=== PATIENT | male | born 1960 | race Caucasian/White ===

== ENCOUNTER 2016-11-28 09:13 | Emergency (ER) | payer MEDICARE ==
[~2016-11-28] VITALS: Ht 182.9 cm; Wt 97.3 kg
[~2016-11-28 09:13] MED LIST: ASPI-973 PO; ATOR20TA65 PO; CARV25TA2 PO; DIGO125T73 PO; FUR20 PO; INSLIS SUBQ; LISI-571 PO; LORA1TAB PO; METF500T4 PO; METO-301 PO; MULT-1018 PO; NITR1PAT58 TP; NPH,100V10 SUBQ; OMEG-38 PO; OMEP40CA36 PO; PROC25SU30 RC; PROM25SU46 RC; SERT100T9 PO; SPIR25TA3 PO
[2016-11-28 09:31] VITALS: BP 127/81; PULSE 106; RESP 16; O2SAT 99
[2016-11-28] MEDS ORDERED: Ondansetron 8 mg ODT Tablet ONE (09:34)
--- NOTE | 2016-11-28 09:47 | ED.REPORT ---
HPI-Abd Pain M 40 and Over Date of Service Nov 28, 2016 ED Provider: Laury Dyer MD This patient is a 55 year old male with a history of gastroparesis and DM presenting to the ED complaining of an exacerbation of gastroparesis. For 2 days , he has been nauseous and with one episode of vomiting today. He regularly takes Reglan with meals and took 20mg at 0700 this morning. He states that he threw up half of his breakfast sandwich and that is when the pain started in the upper quadrant of his stomach that is sharp and cramping. He had a slight fever yesterday, which has resolved and denies chills. Pt has had normal BM's. He has a referral to [facility] for a possible gastric pace maker. He states that he has modified his diet due to DM and things have improved since. He reports this pain is the same as previous exacerbations of gastroparesis. Nursing Notes Stated Complaint: VOMITING Chief Complaint: Male Abdominal Pain Nursing Notes Reviewed: Yes Allergies: Coded Allergies: haloperidol (Verified Adverse Reaction, Intermediate, feels jittery and uncomfortable, 11/13/16) morphine (Verified Adverse Reaction, Intermediate, emesis, 11/13/16) Scheduled Aspirin (Aspirin) 81 Mg Tablet 81 MG PO DAILY Atorvastatin Calcium (Atorvastatin Calcium) 20 Mg Tablet 40 MG PO HS Carvedilol (Carvedilol) 25 Mg Tablet 25 MG PO BIDWM Digoxin (Digoxin) 125 Mcg Tablet 125 MCG PO Daily 0900 Furosemide (Furosemide) 20 Mg Tab 20 MG PO MORNING Insulin Human Lispro (HumaLOG U100 Insulin Vial) 100 Unit/Ml Unit UNITS SUBQ ACHS Use sliding scale to adjust dose according to your blood glucose Lisinopril (Lisinopril) 5 Mg Tablet 7.5 MG PO BID Metformin (Metformin) 500 Mg Tablet 1,000 MG PO BIDWM Metoclopramide (Reglan) 10 Mg Tablet 20 MG PO TID Multivitamin (Multi Vitamin Daily) 1 Each Tablet 1 TABLET PO DAILY NPH, Human Insulin Isophane (Novolin-N U100 Insulin Vial) 100 Unit/1 Ml Vial 80 UNITS SUBQ BIDAC Nitroglycerin 0.1 mg/hr Patch (Nitroglycerin 0.1 mg/hr Patch) 1 Each Patch.td24 1 PATCH TP DAILY [place]-3/Dha/Epa/Fish Oil (Fish Oil 1,000 mg Softgel) 1 Each Capsule 1 CAPSULE PO HS Omeprazole (Omeprazole) 40 Mg Capsule.dr 40 MG PO DAILY Ondansetron ODT (Ondansetron ODT) 8 Mg Tab.rapdis 8 MG PO Q6H Promethazine HCl (Phenergan) 25 Mg Supp.rect 25 MG RC QID Sertraline HCl (Sertraline) 100 Mg Tablet 100 MG PO BID Spironolactone (Spironolactone) 25 Mg Tablet 25 MG PO DAILY Scheduled PRN Lorazepam (Lorazepam) 1 Mg Tablet 1 MG PO Q8H PRN PRN For Anxiety or Agitation Prochlorperazine Maleate (Compazine Suppository) 25 Mg Supp.rect 25 MG RC Q8 PRN PRN For Nausea/Vomiting General Time Seen by MD: 09:47 Chief Complaint Abdominal pain Hx Obtained From: Patient Arrived By: Walk-in Sudden in Onset?: Yes Onset Occurred: 2 days ago Context of Onset: After vomiting Symptom Duration: Since onset Quality: Cramping, Sharp Severity: Current: Severe Severity: Maximum: Severe Associated with: Reports: Fever, Denies: Chills Additional Notes: Slight fever yesterday but not today Pertinent Negative: Pt denies other symptoms Exacerbated by: Eating Recent Healthcare: No recent hospitalization, Recent doctor visit Similar Sx Previous: Yes Past Medical History Past Medical History Notes: Multiple ED visits for gastroparesis: September 10, September 13, September 17, October 13, October 15, October 17, October 18, October 19, October 20 2 Seven ED visits and two admits in October, by 11/14/16 Patient has an appointment to see GI (Leydi) in December Past Medical History 1. Hypertriglyceridemia. 2. Hyperlipidemia. 3. Chronic systolic congestive heart failure. 4. Dilated ischemic cardiomyopathy. 5. Coronary artery disease. 6. Insulin-dependent type 2 diabetes. 7. Diabetic gastroparesis. 8. Diabetic peripheral neuropathy. 9. Erosive gastritis. 10. Duodenitis. 11. Tobacco dependence. 12. Obstructive sleep apnea. 13. Depression. 14. Anxiety. 15. Pancreatitis Reports: Congestive heart failure, Coronary artery disease, GERD Past Surgical History AICD Hemorrhoidectomy Endoscopy 02/07/[address] Henry, gastritis, mild duodenitis Reports: Cholecystectomy, Inguinal hernia repair Reports: AICD, Pacemaker insertion Family History Reviewed, not relevant Smoking History Current Every Day Smoker, Heavy Tobacco Smoker Social History Alcohol Use: "Social" Drug Use: Denies drug use Other Social History: Good social support, Frequent ED visitor, Local resident Occupation Not working; on disability Ambulatory Status Independent Review of Systems Constitutional: Reports: Fever (Slightly yesterday but not today ), Denies: Chills Respiratory: Denies: Shortness of breath GI: Reports: Abdominal pain (Upper quadrant), Nausea, Vomiting (once this morning), Denies: Constipation, Diarrhea Complete sys rev & neg: except as marked. Physical Exam Initial Vital Signs Vital Signs (First) Date Time Temp Pulse Resp B/P Pulse Ox O2 Delivery O2 Flow Rate FiO2 11/28/16 09:31 36.7 106 16 127/81 99 Room Air Initial VS: Reviewed Head / Eyes: Atraumatic, Normocephalic, PERRL ENT: Conjunctiva normal, No scleral icterus Neck: Supple, Full range of motion Extremities: Vascular intact, Neuro intact Skin: Warm, Dry, No cyanosis Neurologic: Alert, Oriented, Nonfocal Psychiatric: Mood/affect normal, Behavior normal, Normal thought content General/Constitutional: Awake, Alert Respiratory / Chest: Breath sounds NL, Breath sounds = bilat, No respiratory distress, No rales, No rhonchi, No wheezing Cardiovascular: Heart rate NL, Regular rhythm, Heart sounds NL, Peripheral circulation NL Abdomen: Atraumatic, Soft Tenderness/Guarding/Rebound: Positive: Guarding voluntary Tenderness generalized in upper abdomen. Re-Eval/Medical Decision Med Decision/Clinical Course This patient presents with gastroparesis in his usual abdominal pain that is associated with it. He denies any new symptoms. He has had only one episode of emesis and was given IM injections and given an oral challenge. After taking some sips of fluid he complained of recurrent nausea for she is given Zofran he did not have any further episodes of emesis. Source of Hx: Old records Time of Eval: 12:30 Patient Status: Condition improved Re-Evaluation/Progress Note: Discussed findings with patient and ready for discharge. Pt. understands and agrees with plan. All questions have been addressed at this time. Discharge & Departure Primary Impression: Gastroparesis Additional Impression: Nausea and vomiting Vomiting type: unspecified Vomiting Intractability: non-intractable Qualified Code: R11.2 - Nausea with vomiting, unspecified Disposition: Home Vital Signs - All Vital Signs Date Time Temp Pulse Resp B/P Pulse Ox O2 Delivery O2 Flow Rate FiO2 11/28/16 12:45 36.7 92 14 130/82 99 Room Air 11/28/16 09:31 36.7 106 16 127/81 99 Room Air )( All Prior VS Reviewed: Yes Condition: Stable Patient Instructions: Diabetic gastroparesis (DC) Additional Instructions: For today you should be on a liquid diet. Increase your diet as tolerated. Keep your follow up appointments. Continue your regular medications Seek care for new or concerning symptoms. Referrals: OTHER,PHYSICIAN (PCP) (Family) Scribe Attestation Portions of this note were transcribed by Aileen Colvin and Marisela Maldonado. I, Dr. Dyer personally performed the history, physical exam and medical decision- making; I reviewed and confirmed the accuracy of the information in the transcribed note. Signed by: Ayanna Jamison, 11/28/2016 and 1231. Laury Dyer MD Nov 28, 2016 09:47 Anna Maldonado [Marisela] Nov 28, 2016 10:20 Aileen Colvin Nov 28, 2016 11:47
[2016-11-28] MEDS ORDERED: Promethazine 25 mg/mL Inj IM ONE (10:15)
[2016-11-28] MEDS ORDERED: HYDROmorphone 1 mg/mL Inj IM ONE (10:15)
[2016-11-28] MEDS ORDERED: Ondansetron 8 mg ODT Tablet PO ONE (11:45)
[2016-11-28] MEDS ORDERED: ONDA8TAB10 PO (12:34)
[2016-11-28 12:45] VITALS: BP 130/82; PULSE 92; RESP 14; O2SAT 99
[2016-11-29] MEDS ORDERED: HYDR-4003 PO (20:38)
[2016-12-10] MEDS ORDERED: ONDA4TAB6 PO (17:13)
[2016-12-10] MEDS ORDERED: HYDR2TAB27 PO (17:13)
== END 2016-11-28 12:46 | disposition home or self-care (01) ==
LOC: SED 09:13
DX: E11.43 Type 2 diabetes mellitus with diabetic autonomic (poly)neuropathy (principal); K31.84 Gastroparesis; R11.2 Nausea with vomiting, unspecified; I25.10 Atherosclerotic heart disease of native coronary artery without angina pectoris; K21.9 Gastro-esophageal reflux disease without esophagitis; I50.9 Heart failure, unspecified; E78.5 Hyperlipidemia, unspecified; F17.200 Nicotine dependence, unspecified, uncomplicated; Z95.0 Presence of cardiac pacemaker; Z79.84 Long term (current) use of oral hypoglycemic drugs; Z79.82 Long term (current) use of aspirin; Z88.5 Allergy status to narcotic agent; Z88.8 Allergy status to other drugs, medicaments and biological substances
CPT/HCPCS: 96372; 99284; J1170

== ENCOUNTER 2016-11-29 16:16 | Emergency (ER) | payer MEDICARE ==
[~2016-11-29] VITALS: Ht 182.9 cm; Wt 97.3 kg
[~2016-11-29 16:16] MED LIST changes: +ONDA8TAB10 PO
[2016-11-29 16:54] VITALS: BP 148/71; PULSE 102; RESP 18; O2SAT 95
[2016-11-29] MEDS ORDERED: 0.9% Sodium Chloride 1,000 ML IV ONE (18:34)
[2016-11-29] MEDS ORDERED: MetoCLOpramide 5 mg/mL 2 mL Inj IVPUSH ONE (18:35)
--- NOTE | 2016-11-29 18:45 | ED.REPORT ---
HPI-Abd Pain M 40 and Over Date of Service Nov 29, 2016 ED Provider: Yusef Núñez PA-C Ramon is a 55-year-old male with a history of diabetic gastroparesis who presents with chief complaint of nausea and vomiting. Patient states that he is diabetic gastroparesis as been flaring since last night. He complains of upper abdominal pain, nausea vomiting. Denies fever, chest pain, dyspnea. Nursing Notes Stated Complaint: NAUSEA,VOMITING Chief Complaint: Male Abdominal Pain Nursing Notes Reviewed: Yes Allergies: Coded Allergies: haloperidol (Verified Adverse Reaction, Intermediate, feels jittery and uncomfortable, 11/13/16) morphine (Verified Adverse Reaction, Intermediate, emesis, 11/13/16) Scheduled Aspirin (Aspirin) 81 Mg Tablet 81 MG PO DAILY Atorvastatin Calcium (Atorvastatin Calcium) 20 Mg Tablet 40 MG PO HS Carvedilol (Carvedilol) 25 Mg Tablet 25 MG PO BIDWM Digoxin (Digoxin) 125 Mcg Tablet 125 MCG PO Daily 0900 Furosemide (Furosemide) 20 Mg Tab 20 MG PO MORNING Insulin Human Lispro (HumaLOG U100 Insulin Vial) 100 Unit/Ml Unit UNITS SUBQ ACHS Use sliding scale to adjust dose according to your blood glucose Lisinopril (Lisinopril) 5 Mg Tablet 7.5 MG PO BID Metformin (Metformin) 500 Mg Tablet 1,000 MG PO BIDWM Metoclopramide (Reglan) 10 Mg Tablet 20 MG PO TID Multivitamin (Multi Vitamin Daily) 1 Each Tablet 1 TABLET PO DAILY NPH, Human Insulin Isophane (Novolin-N U100 Insulin Vial) 100 Unit/1 Ml Vial 80 UNITS SUBQ BIDAC Nitroglycerin 0.1 mg/hr Patch (Nitroglycerin 0.1 mg/hr Patch) 1 Each Patch.td24 1 PATCH TP DAILY [place]-3/Dha/Epa/Fish Oil (Fish Oil 1,000 mg Softgel) 1 Each Capsule 1 CAPSULE PO HS Omeprazole (Omeprazole) 40 Mg Capsule.dr 40 MG PO DAILY Ondansetron ODT (Ondansetron ODT) 8 Mg Tab.rapdis 8 MG PO Q6H Promethazine HCl (Phenergan) 25 Mg Supp.rect 25 MG RC QID Sertraline HCl (Sertraline) 100 Mg Tablet 100 MG PO BID Spironolactone (Spironolactone) 25 Mg Tablet 25 MG PO DAILY Scheduled PRN Hydrocodone-Acetaminophen 5-325 mg (Hydrocodone-Acetaminophen 5-325 mg) 1 Each Tablet 1-2 TABLET PO Q4H PRN PRN For Pain Lorazepam (Lorazepam) 1 Mg Tablet 1 MG PO Q8H PRN PRN For Anxiety or Agitation Prochlorperazine Maleate (Compazine Suppository) 25 Mg Supp.rect 25 MG RC Q8 PRN PRN For Nausea/Vomiting General Time Seen by MD: 18:20 Chief Complaint Nausea Sudden in Onset?: No Past Medical History Past Medical History Notes: Multiple ED visits for gastroparesis: September 10, September 13, September 17, October 13, October 15, October 17, October 18, October 19, October 20 2 Seven ED visits and two admits in October, by 11/14/16 Patient has an appointment to see GI (Leydi) in December Past Medical History 1. Hypertriglyceridemia. 2. Hyperlipidemia. 3. Chronic systolic congestive heart failure. 4. Dilated ischemic cardiomyopathy. 5. Coronary artery disease. 6. Insulin-dependent type 2 diabetes. 7. Diabetic gastroparesis. 8. Diabetic peripheral neuropathy. 9. Erosive gastritis. 10. Duodenitis. 11. Tobacco dependence. 12. Obstructive sleep apnea. 13. Depression. 14. Anxiety. 15. Pancreatitis Reports: Congestive heart failure, Coronary artery disease, GERD Past Surgical History AICD Hemorrhoidectomy Endoscopy 02/07/[address] Henry, gastritis, mild duodenitis Reports: Cholecystectomy, Inguinal hernia repair Reports: AICD, Pacemaker insertion Family History Reviewed, not relevant Smoking History Current Every Day Smoker, Heavy Tobacco Smoker Social History Alcohol Use: "Social" Drug Use: Denies drug use Other Social History: Good social support, Frequent ED visitor, Local resident Occupation Not working; on disability Ambulatory Status Independent Review of Systems General: Denies fever, chills, malaise. HEENT: Denies congestion, headache, sore throat. Respiratory: Denies dyspnea, cough, shortness of breath, wheezing. Cardiovascular: Denies chest pain, palpitations. Gastrointestinal: Admits abdominal pain, vomiting. Denies diarrhea, , melena, hematochezia Genitourinary: Denies frequency, urgency, dysuria, hematuria. Otherwise as noted in HPI. Physical Exam General: Ill appearing, well developed, well nourished, mild distress. Head: Atraumatic, normocephalic. Eyes: No scleral icterus or injection. No discharge. Vision grossly intact. ENT: Voice clear, hearing grossly intact. Respiratory: Regular rate and rhythm. Breath sounds present, clear to auscultation and equal bilaterally. Cardiovascular: Regular rate and rhythm, without murmur, gallop or rub. No pedal edema. Gastrointestinal: Tender across the upper quadrants without rebound. Bowel sounds hypoactive Skin: Warm and dry. Neurological: Grossly nonfocal. Initial Vital Signs Vital Signs (First) Date Time Temp Pulse Resp B/P Pulse Ox O2 Delivery O2 Flow Rate FiO2 11/29/16 16:54 36.1 102 18 148/71 95 Room Air Initial VS: Vital signs abnormal (mild tachycardia) Re-Eval/Medical Decision Med Decision/Clinical Course I discussed this case with Dr. Mead. This is a 54-year-old male patient well known to the department with a history of diabetic gastroparesis. He complains of upper abdominal pain, severe nausea and vomiting. Denies fever, chills, diarrhea or other symptoms. The symptoms are familiar to him as his usual gastroparesis flare. No indication is a new condition such as a perforated bowel, pancreatitis, ulcer, gallbladder disease. Responded well to fluids, diphenhydramine, metoclopramide, hydromorphone. Now feels better and ready to be discharged to home. Time of Eval: 23:35 Re-Evaluation/Progress Note: Patient responded well to fluids, antiemetics, Benadryl, analgesics. He is comfortable and ready to be discharged Discharge & Departure Primary Impression: Diabetic gastroparesis Disposition: Home Vital Signs - All Vital Signs Date Time Temp Pulse Resp B/P Pulse Ox O2 Delivery O2 Flow Rate FiO2 11/29/16 19:41 74 16 136/84 95 Room Air 11/29/16 16:54 36.1 102 18 148/71 95 Room Air )( All Prior VS Reviewed: Yes Condition: Stable Patient Instructions: Diabetic gastroparesis (GEN) Additional Instructions: Evaluation in the ED for upper abdominal pain and vomiting. History and physical are consistent with your familiar diabetic gastroparesis flare. Responded well to medications numerous department. Stable and safe for discharge. I will send her with a prescription for a small amount of narcotic pain medication. As you know do not drive, operate heavy machinery or drink alcohol on his medications. Follow up with your primary care provider to continue therapy for your diabetic gastroparesis. Return to emergency department for any new or worsening symptoms. Referrals: NOPCP (PCP) EDSupervising Provider for APC: Jonelle Mead MD, Seth PA-C Nov 29, 2016 18:45
[2016-11-29] MEDS: HYDROmorphone 1 mg/mL Inj IVPUSH PRN ×2 (19:15→19:42)
[2016-11-29 19:41] VITALS: BP 136/84; PULSE 74; RESP 16; O2SAT 95
[2016-11-29] MEDS ORDERED: HYDR-4003 PO (20:38)
[2016-11-29 20:49] VITALS: PULSE 78; RESP 16; O2SAT 95
[2016-12-10] MEDS ORDERED: ONDA4TAB6 PO (17:13)
[2016-12-10] MEDS ORDERED: HYDR2TAB27 PO (17:13)
== END 2016-11-29 20:52 | disposition home or self-care (01) ==
LOC: SED 16:16
DX: E11.43 Type 2 diabetes mellitus with diabetic autonomic (poly)neuropathy (principal); K31.84 Gastroparesis; K21.9 Gastro-esophageal reflux disease without esophagitis; I25.10 Atherosclerotic heart disease of native coronary artery without angina pectoris; I50.22 Chronic systolic (congestive) heart failure; Z95.0 Presence of cardiac pacemaker; F17.200 Nicotine dependence, unspecified, uncomplicated; Z79.82 Long term (current) use of aspirin; Z79.4 Long term (current) use of insulin; Z79.84 Long term (current) use of oral hypoglycemic drugs; Z88.5 Allergy status to narcotic agent
CPT/HCPCS: 96361; 96374; 96375; 99284; J1170; J1200; J2765; J7030

== ENCOUNTER 2016-12-03 16:56 | Emergency (ER) | payer MEDICARE ==
[~2016-12-03] VITALS: Ht 182.9 cm; Wt 97.3 kg
[~2016-12-03 16:56] MED LIST changes: +HYDR-4003 PO
[2016-12-03 17:07] VITALS: BP 134/94; PULSE 105; RESP 16; O2SAT 96
[2016-12-03 17:34] LABS: BASOPHILS % (AUTO) 0.9 % (0-3); EOSINOPHILS % (AUTO) 4.4 % (0-5); MONOCYTES % (AUTO) 7.5 % (4-12); Mean Corpuscular Hemoglobin 29.3 pg (27.0-35.0); Mean Corpuscular Volume 81.9 fL (81-100); NEUTROPHILS % (AUTO) 57.9 % (40-74); Platelet Count 231 bil/L (150-400)
[2016-12-03 18:02] LABS: Magnesium 1.9 mg/dL (1.6-2.6)
[2016-12-03] MEDS ORDERED: MetoCLOpramide 5 mg/mL 2 mL Inj IVPUSH ONE (20:10)
[2016-12-03] MEDS ORDERED: HYDROmorphone 1 mg/mL Inj IVPUSH ONE ×2 (20:10→20:45)
--- NOTE | 2016-12-03 20:11 | ED.REPORT ---
HPI-Abd Pain M 40 and Over Date of Service Dec 03, 2016 ED Provider: Ray Barraza MD Patient is a 55 year old male with a history of diabetes mellitus with gastroparesis who is well known in the ED presents complaining of upper abdominal pain, nausea, and vomiting that began today. The patient states that his current symptoms are what he always experiences with his gastropareses. The patient has 20mg Reglan at home for nausea and vomiting. He has previously been given Zofran, which only improves his symptoms sometimes. He is followed by Dr Holley for GI, who is working with him to implant a gastric stimulator. He denies chest pain, bloody or tarry stools, diarrhea, dysuria, fever, or other complaints. Nursing Notes Stated Complaint: GASTROPARESIS Chief Complaint: Male Abdominal Pain Nursing Notes Reviewed: Yes Allergies: Coded Allergies: haloperidol (Verified Adverse Reaction, Intermediate, feels jittery and uncomfortable, 11/13/16) morphine (Verified Adverse Reaction, Intermediate, emesis, 11/13/16) Scheduled Aspirin (Aspirin) 81 Mg Tablet 81 MG PO DAILY Atorvastatin Calcium (Atorvastatin Calcium) 20 Mg Tablet 40 MG PO HS Carvedilol (Carvedilol) 25 Mg Tablet 25 MG PO BIDWM Digoxin (Digoxin) 125 Mcg Tablet 125 MCG PO Daily 0900 Furosemide (Furosemide) 20 Mg Tab 20 MG PO MORNING Insulin Human Lispro (HumaLOG U100 Insulin Vial) 100 Unit/Ml Unit UNITS SUBQ ACHS Use sliding scale to adjust dose according to your blood glucose Lisinopril (Lisinopril) 5 Mg Tablet 7.5 MG PO BID Metformin (Metformin) 500 Mg Tablet 1,000 MG PO BIDWM Metoclopramide (Reglan) 10 Mg Tablet 20 MG PO TID Multivitamin (Multi Vitamin Daily) 1 Each Tablet 1 TABLET PO DAILY NPH, Human Insulin Isophane (Novolin-N U100 Insulin Vial) 100 Unit/1 Ml Vial 80 UNITS SUBQ BIDAC Nitroglycerin 0.1 mg/hr Patch (Nitroglycerin 0.1 mg/hr Patch) 1 Each Patch.td24 1 PATCH TP DAILY [place]-3/Dha/Epa/Fish Oil (Fish Oil 1,000 mg Softgel) 1 Each Capsule 1 CAPSULE PO HS Omeprazole (Omeprazole) 40 Mg Capsule.dr 40 MG PO DAILY Ondansetron ODT (Ondansetron ODT) 8 Mg Tab.rapdis 8 MG PO Q6H Promethazine HCl (Phenergan) 25 Mg Supp.rect 25 MG RC QID Sertraline HCl (Sertraline) 100 Mg Tablet 100 MG PO BID Spironolactone (Spironolactone) 25 Mg Tablet 25 MG PO DAILY Scheduled PRN Hydrocodone-Acetaminophen 5-325 mg (Hydrocodone-Acetaminophen 5-325 mg) 1 Each Tablet 1-2 TABLET PO Q4H PRN PRN For Pain Lorazepam (Lorazepam) 1 Mg Tablet 1 MG PO Q8H PRN PRN For Anxiety or Agitation Prochlorperazine Maleate (Compazine Suppository) 25 Mg Supp.rect 25 MG RC Q8 PRN PRN For Nausea/Vomiting General Time Seen by MD: 19:53 Chief Complaint Abdominal pain, Nausea, Other (vomiting) Hx Obtained From: Patient Arrived By: Walk-in Sudden in Onset?: No Onset Occurred: 1 - 4 hours ago Symptom Duration: Since onset Progression since Onset: Gradually worsening Location: : Abdomen lower Quality: Painful Severity: Current: Moderate Severity: Maximum: Moderate Recent Healthcare: Recent doctor visit Similar Sx Previous: Yes Past Medical History Past Medical History Notes: Multiple ED visits for gastroparesis: September 10, September 13, September 17, October 13, October 15, October 17, October 18, October 19, October 20 2 Seven ED visits and two admits in October, by 11/14/16 Patient has an appointment to see GI (Leydi) in December Past Medical History 1. Hypertriglyceridemia. 2. Hyperlipidemia. 3. Chronic systolic congestive heart failure. 4. Dilated ischemic cardiomyopathy. 5. Coronary artery disease. 6. Insulin-dependent type 2 diabetes. 7. Diabetic gastroparesis. 8. Diabetic peripheral neuropathy. 9. Erosive gastritis. 10. Duodenitis. 11. Tobacco dependence. 12. Obstructive sleep apnea. 13. Depression. 14. Anxiety. 15. Pancreatitis Reports: Congestive heart failure, Coronary artery disease, GERD Past Surgical History AICD Hemorrhoidectomy Endoscopy 02/07/[address] Henry, gastritis, mild duodenitis Reports: Cholecystectomy, Inguinal hernia repair Reports: AICD, Pacemaker insertion Family History Reviewed, not relevant Smoking History Current Every Day Smoker Social History Alcohol Use: "Social" Drug Use: Denies drug use Other Social History: Good social support, Frequent ED visitor, Local resident Occupation Not working; on disability Ambulatory Status Independent Review of Systems Constitutional: Denies: Chills, Fever Respiratory: Denies: Shortness of breath Cardiovascular: Denies: Chest pain GI: Reports: Abdominal pain, Nausea, Vomiting, Denies: Bloody/tarry stool, Diarrhea Male: Denies Dysuria, Denies Flank pain Complete sys rev & neg: except as marked. Physical Exam Initial Vital Signs Vital Signs (First) Date Time Temp Pulse Resp B/P Pulse Ox O2 Delivery O2 Flow Rate FiO2 12/03/16 17:07 36.6 105 16 134/94 96 Room Air Initial VS: Reviewed Head / Eyes: Atraumatic, Normocephalic, PERRL Neck: Supple, Full range of motion Extremities: Vascular intact, Neuro intact Skin: Warm, Dry, No cyanosis Neurologic: Alert, Oriented, Nonfocal Psychiatric: Mood/affect normal, Behavior normal, Normal thought content General/Constitutional: Awake, Alert, No acute distress Respiratory / Chest: Breath sounds NL, Breath sounds = bilat, No respiratory distress, No rales, No rhonchi, No wheezing Cardiovascular: Heart rate NL, Regular rhythm, No murmurs Abdomen: Soft, No guarding, No rebound Tenderness/Guarding/Rebound: Positive: Tender epigastric (mild) Back: Painless range of motion ENT: Airway patent Interpretation & Diagnostics Lab Results Interpretation Result Diagram: 12/03/16 1725 12/03/16 1725 Test 12/03/16 17:25 White Blood Count 7.7th/mm3 (3.8-10.1) Red Blood Count 6.24mil/mm3 (4.40-5.80) Hemoglobin 18.3g/dL (13.8-17.2) Hematocrit 51.1% (41.0-50.0) Mean Corpuscular Volume 81.9fL (81-100) Mean Corpuscular Hemoglobin 29.3pg (27.0-35.0) Mean Corpuscular Hemoglobin Concent 35.8% (32.0-37.0) Red Cell Distribution Width 14.7% (12.3-15.4) Platelet Count 231bil/L (150-400) Neutrophils (%) (Auto) 57.9% (40-74) Lymphocytes (%) (Auto) 28.9% (14-46) Monocytes (%) (Auto) 7.5% (4-12) Eosinophils (%) (Auto) 4.4% (0-5) Basophils (%) (Auto) 0.9% (0-3) Sodium Level 135mEq/L (134-144) Potassium Level 4.0mEq/L (3.5-5.2) Chloride Level 97mEq/L (97-108) Carbon Dioxide Level 23mmol/L (18-29) Blood Urea Nitrogen 17mg/dL (6-24) Creatinine 0.98mg/dL (0.76-1.27) Estimat Glomerular Filtration Rate 85mL/min (>59) Glucose Level 259mg/dL (60-99) Calcium Level 9.5mg/dL (8.5-10.1) Magnesium Level 1.9mg/dL (1.6-2.6) Total Bilirubin 0.6mg/dL (0.0-1.2) Aspartate Amino Transf (AST/SGOT) 13U/L (0-50) Alanine Aminotransferase (ALT/SGPT) 13U/L (0-44) Alkaline Phosphatase 102U/L (25-150) Total Protein 7.1g/dL (6.4-8.4) Albumin 4.3g/dL (3.4-5.0) Lipase 17U/L (13-60) Hold Canseco Top Tube Received (Received) Re-Eval/Medical Decision Med Decision/Clinical Course 55-year-old male history of gastroparesis presenting with typical symptoms of his gastroparesis. He reports these are the same symptoms. He was given 1 dose of Reglan, Dilaudid and Benadryl and his symptoms resolved. Discharged home with return precautions. Source of Hx: Old records Time of Eval: 21:09 Patient Status: Condition improved Re-Evaluation/Progress Note: Rechecked the patient. He will be given an additional dose of Dilaudid prior to discharge. Patient understands and agrees with the plan to be discharged home. No acute problems on labs. Discharge instructions and follow-up discussed. All questions were addressed. Return to the ED warnings given. Counseled Regarding: Diagnosis, Lab results, Need for follow-up, When/why to return to ED Discharge & Departure Primary Impression: Nausea & vomiting Vomiting type: unspecified Vomiting Intractability: non-intractable Qualified Code: R11.2 - Nausea with vomiting, unspecified Additional Impression: Gastroparesis Disposition: Home Vital Signs - All Vital Signs Date Time Temp Pulse Resp B/P Pulse Ox O2 Delivery O2 Flow Rate FiO2 12/03/16 21:24 89 16 142/92 96 Room Air 12/03/16 17:07 36.6 105 16 134/94 96 Room Air )( All Prior VS Reviewed: Yes Condition: Stable Patient Instructions: Acute Nausea and Vomiting (ED) Additional Instructions: It appears that you symptoms today are due to your gastroparesis. Your laboratory evaluation and examination were reassuring. Take the Zofran and Reglan that you have at home as needed for nausea. If you need a new primary care physician, you can contact Dr. Morris's office. You should follow-up with Dr. Holley as planned. Return to the emergency department if you develop worsening abdominal pain, vomiting, fever, or any other concerning symptoms. Referrals: Shilo Morris Donald E MD Scribe Attestation Portions of this note were transcribed by Paula Kimball. I, Dr. Barraza personally performed the history, physical exam and medical decision-making; I reviewed and confirmed the accuracy of the information in the transcribed note. Signed by: Ayanna Maldonado, 12/03/2016 1256 copies to: Shilo Morris DO; Luis Antonio Holley MD, Ben M MD Dec 03, 2016 20:11 Paula Kimball Dec 03, 2016 20:13
[2016-12-03 21:24] VITALS: BP 142/92; PULSE 89; RESP 16; O2SAT 96
[2016-12-10] MEDS ORDERED: HYDR2TAB27 PO (17:13)
[2016-12-10] MEDS ORDERED: ONDA4TAB6 PO (17:13)
== END 2016-12-03 21:25 | disposition home or self-care (01) ==
LOC: SED 16:56
DX: E11.43 Type 2 diabetes mellitus with diabetic autonomic (poly)neuropathy (principal); K31.84 Gastroparesis; E11.59 Type 2 diabetes mellitus with other circulatory complications; E11.21 Type 2 diabetes mellitus with diabetic nephropathy; R11.2 Nausea with vomiting, unspecified; I25.10 Atherosclerotic heart disease of native coronary artery without angina pectoris; I50.22 Chronic systolic (congestive) heart failure; I42.9 Cardiomyopathy, unspecified; E78.5 Hyperlipidemia, unspecified; K21.9 Gastro-esophageal reflux disease without esophagitis; F17.200 Nicotine dependence, unspecified, uncomplicated; Z95.0 Presence of cardiac pacemaker; Z79.82 Long term (current) use of aspirin; Z79.4 Long term (current) use of insulin; Z79.84 Long term (current) use of oral hypoglycemic drugs; Z88.5 Allergy status to narcotic agent; Z88.8 Allergy status to other drugs, medicaments and biological substances
CPT/HCPCS: 36415; 80053; 83690; 83735; 85025; 96374; 96375; 96376; 99285; J1170; J1200; J2765

== ENCOUNTER 2016-12-12 15:28 | Emergency (ER) | payer MEDICARE ==
[~2016-12-12] VITALS: Ht 182.9 cm; Wt 88.6 kg
[~2016-12-12 15:28] MED LIST changes: -HYDR-4003 PO; +HYDR2TAB27 PO; -MULT-1018 PO; -OMEG-38 PO; +ONDA4TAB6 PO; -PROC25SU30 RC; -PROM25SU46 RC
[2016-12-12 15:31] VITALS: BP 143/97; PULSE 90; RESP 20; O2SAT 92
[2016-12-12] MEDS ORDERED: 0.9% Sodium Chloride 1,000 ML IV ONE (17:42)
[2016-12-12] MEDS ORDERED: MetoCLOpramide 5 mg/mL 2 mL Inj IVPUSH ONE ×2 (17:45→19:20)
[2016-12-12 17:51] LABS: EOSINOPHILS % (AUTO) 5.6 % (0-5); MONOCYTES % (AUTO) 7.4 % (4-12); Mean Corpuscular Hemoglobin 29.2 pg (27.0-35.0); Mean Corpuscular Volume 81.6 fL (81-100); NEUTROPHILS % (AUTO) 57.8 % (40-74); Platelet Count 241 bil/L (150-400)
[2016-12-12] MEDS: HYDROmorphone 1 mg/mL Inj IVPUSH PRN ×2 (18:19→18:41)
[2016-12-12 18:20] LABS: Magnesium 1.8 mg/dL (1.6-2.6)
--- NOTE | 2016-12-12 19:18 | ED.REPORT ---
HPI-General Illness Date of Service Dec 12, 2016 ED Provider: Luis Antonio Simms MD A 56 year old male with an extensive medical history including diabetes and frequent ED visits for gastroparesis presents with abdominal pain onset this morning. He also reports nausea and vomiting (x2). He has taken his prescription medication with no relief. His last ED visit was 12/03/16 for similar symptoms. The patient has an appointment with GI next month. Nursing Notes Stated Complaint: NAUSEA,VOMITING Chief Complaint: Male Abdominal Pain Nursing Notes Reviewed: Yes Allergies: Coded Allergies: haloperidol (Verified Adverse Reaction, Intermediate, feels jittery and uncomfortable, 12/12/16) morphine (Verified Adverse Reaction, Intermediate, emesis, 12/12/16) Scheduled Aspirin (Aspirin) 81 Mg Tablet 81 MG PO DAILY Atorvastatin Calcium (Atorvastatin Calcium) 20 Mg Tablet 40 MG PO HS Carvedilol (Carvedilol) 25 Mg Tablet 25 MG PO BIDWM Digoxin (Digoxin) 125 Mcg Tablet 125 MCG PO Daily 0900 Furosemide (Furosemide) 20 Mg Tab 20 MG PO MORNING Insulin Human Lispro (HumaLOG U100 Insulin Vial) 100 Unit/Ml Unit UNITS SUBQ ACHS Use sliding scale to adjust dose according to your blood glucose Lisinopril (Lisinopril) 5 Mg Tablet 7.5 MG PO BID Metformin (Metformin) 500 Mg Tablet 1,000 MG PO BIDWM Metoclopramide (Reglan) 10 Mg Tablet 20 MG PO TID NPH, Human Insulin Isophane (Novolin-N U100 Insulin Vial) 100 Unit/1 Ml Vial 80 UNITS SUBQ BIDAC Nitroglycerin 0.1 mg/hr Patch (Nitroglycerin 0.1 mg/hr Patch) 1 Each Patch.td24 1 PATCH TP DAILY Omeprazole (Omeprazole) 40 Mg Capsule.dr 40 MG PO DAILY Ondansetron ODT (Ondansetron ODT) 8 Mg Tab.rapdis 8 MG PO Q6H Sertraline HCl (Sertraline) 100 Mg Tablet 100 MG PO BID Spironolactone (Spironolactone) 25 Mg Tablet 25 MG PO DAILY Scheduled PRN Hydromorphone (Dilaudid) 2 Mg Tablet 2 MG PO Q4H PRN PRN Pain Lorazepam (Lorazepam) 1 Mg Tablet 0.5 MG PO Q8H PRN PRN For Anxiety or Agitation Ondansetron (Zofran) 4 Mg Tablet 4 MG PO Q4H PRN PRN For Nausea General Time Seen by MD: 17:39 Chief Complaint Abdominal pain Hx Obtained From: Patient Arrived By: Walk-in Sudden in Onset?: Yes Onset Occurred: 9 - 12 hours ago Symptom Duration: Since onset Location: : Abdomen Quality: Painful Severity: Current: Moderate Severity: Maximum: Moderate Associated with: Reports: Nausea, Vomiting, Denies: Fever Pertinent Negative: Relieved by nothing Context Related History: Reports Coronary artery disease, Reports Diabetes mellitus, Reports GERD Recent Healthcare: Recent doctor visit Similar Sx Previous: Yes Past Medical History Past Medical History Notes: Multiple ED visits for gastroparesis: September 10, September 13, September 17, October 13, October 15, October 17, October 18, October 19, October 20 2 Seven ED visits and two admits in October, by 11/14/16 12/12/16: Patient has an appointment to see GI ([facility]) in December Past Medical History 1. Hypertriglyceridemia. 2. Hyperlipidemia. 3. Chronic systolic congestive heart failure. 4. Dilated ischemic cardiomyopathy. 5. Coronary artery disease. 6. Insulin-dependent type 2 diabetes. 7. Diabetic gastroparesis. 8. Diabetic peripheral neuropathy. 9. Erosive gastritis. 10. Duodenitis. 11. Tobacco dependence. 12. Obstructive sleep apnea. 13. Depression. 14. Anxiety. 15. Pancreatitis Reports: Congestive heart failure, Coronary artery disease, GERD Past Surgical History AICD Hemorrhoidectomy Endoscopy 02/07/[address] Henry, gastritis, mild duodenitis Reports: Cholecystectomy, Inguinal hernia repair Reports: AICD, Pacemaker insertion Family History Reviewed, not relevant Smoking History Current Every Day Smoker Social History Alcohol Use: "Social" Drug Use: Denies drug use Other Social History: Good social support, Frequent ED visitor, Local resident Occupation Not working; on disability Ambulatory Status Independent Review of Systems Full Review of Systems Constitutional: Denies: Fever GI: Reports: Abdominal pain, Nausea, Vomiting Complete sys rev & neg: except as marked. Physical Exam Vital Signs Vital Signs Date Time Temp Pulse Resp B/P Pulse Ox O2 Delivery O2 Flow Rate FiO2 12/12/16 21:07 36.2 81 16 138/81 96 Room Air 12/12/16 19:46 36.3 66 16 138/71 65 Room Air 12/12/16 15:31 36.6 90 20 143/97 92 Room Air Initial VS: Reviewed Head / Eyes: Atraumatic, Normocephalic ENT: Conjunctiva normal, No scleral icterus Skin: Warm, Dry Neurologic: Alert, Oriented, Nonfocal Psychiatric: Mood/affect normal, Behavior normal, Normal thought content General/Constitutional: Awake, Alert, No acute distress Abdomen: Soft, Non-tender, BS normoactive Interpretation & Diagnostics Lab Results Interpretation Result Diagram: 12/12/16 1741 12/12/16 1741 Test 12/12/16 17:41 12/12/16 17:46 White Blood Count 9.0th/mm3 (3.8-10.1) Red Blood Count 6.26mil/mm3 (4.40-5.80) Hemoglobin 18.3g/dL (13.8-17.2) Hematocrit 51.1% (41.0-50.0) Mean Corpuscular Volume 81.6fL (81-100) Mean Corpuscular Hemoglobin 29.2pg (27.0-35.0) Mean Corpuscular Hemoglobin Concent 35.8% (32.0-37.0) Red Cell Distribution Width 14.0% (12.3-15.4) Platelet Count 241bil/L (150-400) Neutrophils (%) (Auto) 57.8% (40-74) Lymphocytes (%) (Auto) 27.9% (14-46) Monocytes (%) (Auto) 7.4% (4-12) Eosinophils (%) (Auto) 5.6% (0-5) Basophils (%) (Auto) 1.0% (0-3) Sodium Level 136mEq/L (134-144) Potassium Level 4.2mEq/L (3.5-5.2) Chloride Level 98mEq/L (97-108) Carbon Dioxide Level 21mmol/L (18-29) Blood Urea Nitrogen 11mg/dL (6-24) Creatinine 0.86mg/dL (0.76-1.27) Estimat Glomerular Filtration Rate 98mL/min (>59) Glucose Level 239mg/dL (60-99) Calcium Level 9.6mg/dL (8.5-10.1) Magnesium Level 1.8mg/dL (1.6-2.6) Total Bilirubin 0.5mg/dL (0.0-1.2) Aspartate Amino Transf (AST/SGOT) 15U/L (0-50) Alanine Aminotransferase (ALT/SGPT) 27U/L (0-44) Alkaline Phosphatase 108U/L (25-150) Total Protein 7.6g/dL (6.4-8.4) Albumin 4.3g/dL (3.4-5.0) Lipase 35U/L (13-60) Hold Canseco Top Tube Received (Received) Re-Eval/Medical Decision Med Decision/Clinical Course Recurrent abdominal pain and vomiting and treated a gastroparesis. Responded well to IV fluids, metoclopramide 20 mg IV and Dilaudid IV. Source of Hx: Old records Time of Eval: 20:50 Patient Status: Condition improved Re-Evaluation/Progress Note: Discussed with patient lab results, diagnosis, and plan for discharge. Follow-up and return to the ER instructions given. Patient agrees with plan for care and all questions were addressed. Counseled Regarding: Diagnosis, Lab results, Need for follow-up, When/why to return to ED Discharge & Departure Primary Impression: Nausea and vomiting Vomiting type: unspecified Vomiting Intractability: non-intractable Qualified Code: R11.2 - Nausea with vomiting, unspecified Additional Impression: Gastroparesis Disposition: Home Discharge Condition All VS Reviewed: Yes Condition: Stable Additional Instructions: Continue previous home care. Follow up with GI as planned, continue previous home medications. Referrals: Shawn Ramos DO (PCP) Ayanna Attestation Portions of this note were transcribed by Linsey Platt. I, Dr. Simms, personally performed the history, physical exam, and medical decision-making; I reviewed and confirmed the accuracy of the information in the transcribed note. Signed by: Ayanna Damon, 12/12/2016, 21:34 copies to: Shawn Ramos Donald L MD Dec 12, 2016 19:18 LINSEY PLATT Dec 12, 2016 20:53
[2016-12-12 19:46] VITALS: BP 138/71; PULSE 66; RESP 16; O2SAT 65
[2016-12-12 21:07] VITALS: BP 138/81; PULSE 81; RESP 16; O2SAT 96
== END 2016-12-12 21:08 | disposition home or self-care (01) ==
LOC: SED 15:28
DX: R11.2 Nausea with vomiting, unspecified (principal); E11.43 Type 2 diabetes mellitus with diabetic autonomic (poly)neuropathy; K31.84 Gastroparesis; I25.10 Atherosclerotic heart disease of native coronary artery without angina pectoris; I50.22 Chronic systolic (congestive) heart failure; I42.0 Dilated cardiomyopathy; I25.5 Ischemic cardiomyopathy; K21.9 Gastro-esophageal reflux disease without esophagitis; E78.5 Hyperlipidemia, unspecified; F17.200 Nicotine dependence, unspecified, uncomplicated; Z95.810 Presence of automatic (implantable) cardiac defibrillator; Z90.49 Acquired absence of other specified parts of digestive tract; Z79.82 Long term (current) use of aspirin; Z79.4 Long term (current) use of insulin; Z79.84 Long term (current) use of oral hypoglycemic drugs; Z88.5 Allergy status to narcotic agent
CPT/HCPCS: 36415; 80053; 83690; 83735; 85025; 96361; 96374; 96375; 96376; 99285; J1170; J1200; J2765; J7030

== ENCOUNTER 2016-12-17 15:05 | Emergency (ER) | payer MEDICARE ==
[~2016-12-17] VITALS: Ht 182.9 cm; Wt 88.6 kg
[2016-12-17 15:17] VITALS: BP 131/93; PULSE 97; RESP 20; O2SAT 95
[2016-12-17 16:29] LABS: BASOPHILS % (AUTO) 0.9 % (0-3); EOSINOPHILS % (AUTO) 4.7 % (0-5); Mean Corpuscular Hemoglobin 29.4 pg (27.0-35.0); Mean Corpuscular Volume 82.3 fL (81-100); NEUTROPHILS % (AUTO) 61.5 % (40-74); Platelet Count 179 bil/L (150-400)
[2016-12-17] MEDS ORDERED: 0.9% Sodium Chloride 1,000 ML IV ONE (16:49)
[2016-12-17] MEDS ORDERED: Ondansetron 2 mg/mL 2 mL Inj IVPUSH ONE (16:50)
[2016-12-17] MEDS ORDERED: MetoCLOpramide 5 mg/mL 2 mL Inj IVPUSH ONE (16:50)
--- NOTE | 2016-12-17 17:08 | ED.REPORT ---
HPI-General Illness Date of Service Dec 17, 2016 ED Provider: Indra Sosa MD Pt is a 56 y/o male w/ a complicated medical hx significant for frequent and recurrent diabetic gastroparesis, erosive gastritis, presenting to the ED c/o nausea and vomiting onset this morning. He has been having flare ups of his gastroparesis intermittently this month and this is his 5th visit this month alone. He c/o associated abdominal aching. He denies hematemesis, diarrhea, fever, chills, CP, SOB. He states that he has standing orders at [facility] but came to the ED "only because he is in pain and he is able to manage his nausea and vomiting as an outpatient". He is requesting Dilaudid at this time. Nursing Notes Stated Complaint: ABD PAIN Chief Complaint: Male Abdominal Pain Nursing Notes Reviewed: Yes Allergies: Coded Allergies: haloperidol (Verified Adverse Reaction, Intermediate, feels jittery and uncomfortable, 12/12/16) morphine (Verified Adverse Reaction, Intermediate, emesis, 12/12/16) Scheduled Aspirin (Aspirin) 81 Mg Tablet 81 MG PO DAILY Atorvastatin Calcium (Atorvastatin Calcium) 20 Mg Tablet 40 MG PO HS Carvedilol (Carvedilol) 25 Mg Tablet 25 MG PO BIDWM Digoxin (Digoxin) 125 Mcg Tablet 125 MCG PO Daily 0900 Furosemide (Furosemide) 20 Mg Tab 20 MG PO MORNING Insulin Human Lispro (HumaLOG U100 Insulin Vial) 100 Unit/Ml Unit UNITS SUBQ ACHS Use sliding scale to adjust dose according to your blood glucose Lisinopril (Lisinopril) 5 Mg Tablet 7.5 MG PO BID Metformin (Metformin) 500 Mg Tablet 1,000 MG PO BIDWM Metoclopramide (Reglan) 10 Mg Tablet 20 MG PO TID NPH, Human Insulin Isophane (Novolin-N U100 Insulin Vial) 100 Unit/1 Ml Vial 80 UNITS SUBQ BIDAC Nitroglycerin 0.1 mg/hr Patch (Nitroglycerin 0.1 mg/hr Patch) 1 Each Patch.td24 1 PATCH TP DAILY Omeprazole (Omeprazole) 40 Mg Capsule.dr 40 MG PO DAILY Ondansetron ODT (Ondansetron ODT) 8 Mg Tab.rapdis 8 MG PO Q6H Sertraline HCl (Sertraline) 100 Mg Tablet 100 MG PO BID Spironolactone (Spironolactone) 25 Mg Tablet 25 MG PO DAILY Scheduled PRN Hydromorphone (Dilaudid) 2 Mg Tablet 2 MG PO Q4H PRN PRN Pain Lorazepam (Lorazepam) 1 Mg Tablet 0.5 MG PO Q8H PRN PRN For Anxiety or Agitation Ondansetron (Zofran) 4 Mg Tablet 4 MG PO Q4H PRN PRN For Nausea General Time Seen by MD: 15:31 Chief Complaint Vomiting Hx Obtained From: Patient Arrived By: Walk-in Sudden in Onset?: Yes Onset Occurred: 9 - 12 hours ago Symptom Duration: Since onset Location: : Abdomen Quality: Aching Severity: Current: Mild Severity: Maximum: Mild Past Medical History Past Medical History Notes: Multiple ED visits for gastroparesis: September 10, September 13, September 17, October 13, October 15, October 17, October 18, October 19, October 20 2 Seven ED visits and two admits in October, by 11/14/16 12/12/16: Patient has an appointment to see GI ([facility]) in December Past Medical History 1. Hypertriglyceridemia. 2. Hyperlipidemia. 3. Chronic systolic congestive heart failure. 4. Dilated ischemic cardiomyopathy. 5. Coronary artery disease. 6. Insulin-dependent type 2 diabetes. 7. Diabetic gastroparesis. 8. Diabetic peripheral neuropathy. 9. Erosive gastritis. 10. Duodenitis. 11. Tobacco dependence. 12. Obstructive sleep apnea. 13. Depression. 14. Anxiety. 15. Pancreatitis 16. GERD Past Surgical History AICD Hemorrhoidectomy Endoscopy 02/07/[address] Henry, gastritis, mild duodenitis Reports: Cholecystectomy, Inguinal hernia repair Reports: AICD, Pacemaker insertion Family History Reviewed, not relevant Smoking History Current Every Day Smoker, Heavy Tobacco Smoker Social History Alcohol Use: "Social" Drug Use: Denies drug use Other Social History: Good social support, Frequent ED visitor, Local resident Occupation Not working; on disability Ambulatory Status Independent Review of Systems Full Review of Systems Constitutional: Denies: Chills, Fever Respiratory: Denies: Non-productive cough, Shortness of breath Cardiovascular: Denies: Chest pain GI: Reports: Abdominal pain, Nausea, Vomiting, Denies: Constipation, Diarrhea, Hematemesis, Hematochezia Complete sys rev & neg: except as marked. Physical Exam Vital Signs Vital Signs Date Time Temp Pulse Resp B/P Pulse Ox O2 Delivery O2 Flow Rate FiO2 12/17/16 17:44 36.6 76 20 121/75 95 Room Air 12/17/16 15:17 97 20 131/93 95 Initial VS: Reviewed Head / Eyes: Atraumatic, Normocephalic, PERRL ENT: Mucous membranes moist, Conjunctiva normal, No scleral icterus Neck: Supple, Full range of motion Respiratory: Breath sounds normal, Clear to auscultation, No respiratory distress Cardiovascular: Regular rate & rhythm, Heart sounds normal, Intact distal pulses Extremities: Vascular intact, Neuro intact, No swelling, No tenderness Skin: Warm, Dry, No cyanosis Neurologic: Alert, Oriented, Nonfocal Psychiatric: Mood/affect normal, Behavior normal, Normal thought content General/Constitutional: Awake, Alert, No acute distress, Cooperative, Not toxic appearing Abdomen: Atraumatic, Soft, No guarding, No rebound, No palpable mass Tenderness/Guarding/Rebound: Positive: Tender epigastric (mild) Interpretation & Diagnostics Lab Results Interpretation Result Diagram: 12/17/16 1554 12/17/16 1554 Test 12/17/16 15:54 White Blood Count 7.7th/mm3 (3.8-10.1) Red Blood Count 5.81mil/mm3 (4.40-5.80) Hemoglobin 17.1g/dL (13.8-17.2) Hematocrit 47.8% (41.0-50.0) Mean Corpuscular Volume 82.3fL (81-100) Mean Corpuscular Hemoglobin 29.4pg (27.0-35.0) Mean Corpuscular Hemoglobin Concent 35.8% (32.0-37.0) Red Cell Distribution Width 13.9% (12.3-15.4) Platelet Count 179bil/L (150-400) Neutrophils (%) (Auto) 61.5% (40-74) Lymphocytes (%) (Auto) 25.4% (14-46) Monocytes (%) (Auto) 7.0% (4-12) Eosinophils (%) (Auto) 4.7% (0-5) Basophils (%) (Auto) 0.9% (0-3) Hold Purple Top Tube Received (Received) Hold Blue Top Tube Received (Received) Sodium Level 135mEq/L (134-144) Potassium Level 4.0mEq/L (3.5-5.2) Chloride Level 98mEq/L (97-108) Carbon Dioxide Level 22mmol/L (18-29) Blood Urea Nitrogen 16mg/dL (6-24) Creatinine 0.80mg/dL (0.76-1.27) Estimat Glomerular Filtration Rate 107mL/min (>59) Glucose Level 127mg/dL (60-99) Calcium Level 10.0mg/dL (8.5-10.1) Magnesium Level 2.0mg/dL (1.6-2.6) Total Bilirubin 0.5mg/dL (0.0-1.2) Aspartate Amino Transf (AST/SGOT) 16U/L (0-50) Alanine Aminotransferase (ALT/SGPT) 19U/L (0-44) Alkaline Phosphatase 105U/L (25-150) Total Protein 7.8g/dL (6.4-8.4) Albumin 4.6g/dL (3.4-5.0) Lipase 22U/L (13-60) Hold [place] Top Tube Received (Received) Hold Canseco Top Tube Received (Received) Re-Eval/Medical Decision Med Decision/Clinical Course Pt is a 56 y/o male w/ a complicated medical hx significant for frequent and recurrent diabetic gastroparesis, erosive gastritis, presenting to the ED c/o nausea and vomiting onset this morning. He states that this is one of his typical gastroparesis exacerbations. IV access was obtained and the patient was treated with IV fluids, IV Reglan, IV Benadryl and Zofran. He had no active emesis here in the emergency department. He had stable vital signs. Laboratory studies including CBC and CMP were unremarkable. The patient stated that he would like to be given IV Dilaudid for the pain associated with his gastroparesis and acute been treated with IV Dilaudid here in the past. I confirmed this was in fact O expected the patient that I did not feel that IV narcotic pain medications would be beneficial for him in the long-term given that these medications can exacerbate gastroparesis symptoms. The patient became quite upset and stated that he would have never come to the ED if he knew that he was no going to get narcotic pain medications. I explained that it is not within the scope of my personal practice to give IV hydromorphone for gastroparesis. The patient stated that he no longer wished to be treated in the emergency department and asked to be discharged. At this time the patient demonstrates decisional capacity and is accompanied by his partner. I apologized to the patient that we could not provide specific treatments that he requested and explained my reasoning for not doing so. He was discharged in stable condition. I splinted the patient and he is always welcome to return should his symptoms worsen or fail to improve. He verbalized understanding with the plan. Time of Eval: 17:29 Patient Status: Condition improved, Moderate relief Re-Evaluation/Progress Note: Pt rechecked. Informed pt of plan for treatment. Pt understands and agrees with plan for treatment. F/U instructions and RTER warnings given. All questions addressed. Counseled Regarding: Diagnosis, Lab results, Need for follow-up, When/why to return to ED Discharge & Departure Primary Impression: Nausea and vomiting Vomiting type: cyclical vomiting Vomiting Intractability: non-intractable Qualified Code: G43.A0 - Cyclical vomiting, not intractable Additional Impressions: Gastroparesis Drug-seeking behavior Disposition: Home Discharge Condition All VS Reviewed: Yes Condition: Stable Additional Instructions: Thank you for seeking care at emergency room. It is difficult for us to make definitive diagnoses in the ED but we believe that you are experiencing an exacerbation of her gastroparesis. Our primary goal today in the ED was to evaluate you for any life-threatening conditions. Your evaluation was reassuring. I did not treat you with narcotic pain medications as I am concerned that these can worsen gastroparesis symptoms in the long-term. I understand your frustration but I made this decision as I believe that it is the best thing for you in the long-term. You should follow-up with your primary doctor in the next week. You should return to the ED immediately if you develop worsening symptoms, inability to keep down fluids, fevers, cough, shortness of breath, chest pain, lightheadedness, weakness or any other concerning signs or symptoms. Thank you for letting us partake in your care today. Referrals: Shawn Ramos DO (PCP) Scribe Attestation Portions of this note were transcribed by Gabriel Diaz. I, Dr. Sosa personally performed the history, physical exam and medical decision-making; I reviewed and confirmed the accuracy of the information in the transcribed note. Signed by Ayanna Cheney, 12/17/16 6 copies to: Shawn Ramos Beck O MD Dec 17, 2016 17:08 GABRIEL DIAZ Dec 17, 2016 17:13
[2016-12-17 17:44] VITALS: BP 121/75; PULSE 76; RESP 20; O2SAT 95
== END 2016-12-17 17:47 | disposition home or self-care (01) ==
LOC: SED 15:05
DX: G43.A0 Cyclical vomiting, in migraine, not intractable (principal); E11.43 Type 2 diabetes mellitus with diabetic autonomic (poly)neuropathy; K31.84 Gastroparesis; E78.1 Pure hyperglyceridemia; E78.5 Hyperlipidemia, unspecified; I50.22 Chronic systolic (congestive) heart failure; I25.10 Atherosclerotic heart disease of native coronary artery without angina pectoris; K21.9 Gastro-esophageal reflux disease without esophagitis; F17.200 Nicotine dependence, unspecified, uncomplicated; Z72.89 Other problems related to lifestyle; Z87.19 Personal history of other diseases of the digestive system; Z95.0 Presence of cardiac pacemaker; Z79.4 Long term (current) use of insulin; Z79.82 Long term (current) use of aspirin; Z79.84 Long term (current) use of oral hypoglycemic drugs; Z88.5 Allergy status to narcotic agent; Z88.8 Allergy status to other drugs, medicaments and biological substances
CPT/HCPCS: 36415; 80053; 83690; 83735; 85025; 96374; 96375; 99284; J1200; J2405; J2765; J7030

== ENCOUNTER 2017-01-06 16:19 | Emergency (ER) | payer OTHER, MEDICARE ==
[~2017-01-06] VITALS: Ht 182.9 cm; Wt 94.5 kg
[2017-01-06 16:34] VITALS: BP 128/86; PULSE 97; RESP 16; O2SAT 96
[2017-01-06] MEDS ORDERED: HYDROmorphone 1 mg/mL Inj IM ONE ×2 (18:10→19:25)
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
--- NOTE | 2017-01-06 19:35 | DRSVH ---
PROCEDURE: CT CERVICAL SPINE WITHOUT CONTRAST ([id number]) INDICATIONS: midline cervical and lumbar tenderness TECHNIQUE: Noncontrast 3 mm thick sections acquired from the skull base to the T4 level. Sagittal and coronal r eformats were then constructed. For radiation dose reduction, the following was used: automated exp osure control, adjustment of mA and/or kV according to patient size. COMPARISON: None. FINDINGS: Image quality: Good. Bones: No fractures or dislocations. There is a minimal retrolisthesis of C5 on C6. Moderate disc d egenerative disease is present at C5-6 and C6-7 with small posterior osteophytes. Mild disc degenerat jose disease is present at C7-T1 and C4-5. There is loss of normal lordosis. Visualized superior ribs are intact. Soft tissues: Prevertebral soft tissues are normal in thickness. No paravertebral hematomas. No ap ical pneumothoraces. IMPRESSION: Mid to lower cervical disc degenerative disease is present Dictated by: Shawn Wilson M.D. on 01/06/2017 at 19:33 Approved by: Shawn Wilson M.D. on 01/06/2017 at 19:34
--- NOTE | 2017-01-06 19:37 | DRSVH ---
PROCEDURE: X-RAY LUMBAR SPINE, 2 OR 3 VIEW INDICATIONS: midline cervical and lumbar tenderness TECHNIQUE: 3 views of the lumbar spine were acquired. COMPARISON: None. FINDINGS: Bones: 5 [id number] vertebrae are present. There is normal bony alignment except very minimal r etrolisthesis of L5 on S1. Disc spaces are well maintained.. No vertebral body compression fractures . No suspicious bony lesions. Soft tissues: Overlying bowel gas pattern is normal. No suspicious soft tissue calcifications. IMPRESSION: No acute or recent bony abnormality is seen. There is minimal retrolisthesis of L5 on S1. Dictated by: Shawn Wilson M.D. on 01/06/2017 at 19:36 Approved by: Shawn Wilson M.D. on 01/06/2017 at 19:37
[2017-01-06] MEDS ORDERED: OXYC5TAB72 PO (20:04)
[2017-01-06 20:15] VITALS: BP 138/73; PULSE 65; RESP 16; O2SAT 94
== END 2017-01-06 20:17 | disposition home or self-care (01) ==
LOC: SED 16:19
DX: S16.1XXA Strain of muscle, fascia and tendon at neck level, initial encounter (principal); S39.012A Strain of muscle, fascia and tendon of lower back, initial encounter; V43.52XA Car driver injured in collision with other type car in traffic accident, initial encounter; Y92.410 Unspecified street and highway as the place of occurrence of the external cause; Y93.89 Activity, other specified; Y99.8 Other external cause status; E78.5 Hyperlipidemia, unspecified; I50.22 Chronic systolic (congestive) heart failure; I25.5 Ischemic cardiomyopathy; I25.10 Atherosclerotic heart disease of native coronary artery without angina pectoris; E11.43 Type 2 diabetes mellitus with diabetic autonomic (poly)neuropathy; E11.40 Type 2 diabetes mellitus with diabetic neuropathy, unspecified; K21.9 Gastro-esophageal reflux disease without esophagitis; F17.200 Nicotine dependence, unspecified, uncomplicated; Z95.0 Presence of cardiac pacemaker; Z79.82 Long term (current) use of aspirin; Z79.4 Long term (current) use of insulin; Z79.84 Long term (current) use of oral hypoglycemic drugs; Z88.5 Allergy status to narcotic agent
CPT/HCPCS: 72100; 72125; 96372; 99285; G0463; J1170

== ENCOUNTER 2017-01-09 13:49 | Emergency (ER) | payer OTHER, MEDICARE ==
[~2017-01-09] VITALS: Ht 182.9 cm; Wt 94.5 kg
[~2017-01-09 13:49] MED LIST changes: +OXYC5TAB72 PO
[2017-01-09 13:57] VITALS: BP 133/90; PULSE 88; RESP 20; O2SAT 97
--- NOTE | 2017-01-09 15:16 | DRSVH ---
PROCEDURE: CT LUMBAR SPINE WITHOUT CONTRAST ([id number]) INDICATIONS: low back pain/numbness bilateral lower legs/heavy TECHNIQUE: Noncontrast 3 mm thick sections acquired from the T12 level to the sacrum. Sagittal and coronal refo rmats were constructed. For radiation dose reduction, the following was used: automated exposure co ntrol. COMPARISON: [facility], CR, XR LUMBAR SPINE 2 OR 3VW, 01/06/2017, 18:46. FINDINGS: Image quality: Excellent. Bones: There is normal bony alignment. No acute vertebral body compression fractures. No suspiciou s lytic or blastic bony lesions. Central spinal caliber is of normal overall caliber. No pars defec ts. There is moderate arthrosis. There is mild posterior disc bulge at L2-L3 causing mild central ca nal stenosis. Soft tissues: No retroperitoneal masses or hematomas. Visualized aorta is normal in caliber. There is moderate aortic calcification consistent with atherosclerosis. IMPRESSION: 1. No fracture or dislocation. 2. Mild degenerative disc disease at L2-L3 causing mild central canal stenosis. 3. Moderate aortic atherosclerosis. Dictated by: Edilson John M.D. on 01/09/2017 at 15:01 Approved by: Edilson John M.D. on 01/09/2017 at 15:05
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
[2017-01-09] MEDS ORDERED: HYDROmorphone 1 mg/mL Inj IM ONE (16:30)
== END 2017-01-09 16:45 | disposition home or self-care (01) ==
LOC: SED 13:49
DX: M54.5 Low back pain (principal); M54.2 Cervicalgia; R20.0 Anesthesia of skin; F17.210 Nicotine dependence, cigarettes, uncomplicated; Z87.828 Personal history of other (healed) physical injury and trauma; Z79.82 Long term (current) use of aspirin; Z79.4 Long term (current) use of insulin; Z79.84 Long term (current) use of oral hypoglycemic drugs; Z88.5 Allergy status to narcotic agent
CPT/HCPCS: 72131; 96372; 99284; J1170

== ENCOUNTER 2017-01-16 13:19 | Emergency (ER) | payer MEDICARE, OTHER ==
[~2017-01-16] VITALS: Ht 182.9 cm; Wt 90.9 kg
[~2017-01-16 13:19] MED LIST changes: -HYDR2TAB27 PO; -ONDA8TAB10 PO
[2017-01-16 13:23] VITALS: BP 133/83; PULSE 102; RESP 16; O2SAT 96
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
[2017-01-16] MEDS ORDERED: Ondansetron 2 mg/mL 2 mL Inj IVPUSH ONE (13:40)
[2017-01-16] MEDS ORDERED: 0.9% Sodium Chloride 1,000 ML IV ONE (13:40)
[2017-01-16] MEDS ORDERED: Promethazine Inj 25 MG in Dextrose 5%-Pha MIX 50 ML IV ONE (13:40)
[2017-01-16] MEDS ORDERED: HYDROmorphone 1 mg/mL Inj IVPUSH ONE ×2 (13:50→14:45)
[2017-01-16 14:30] LABS: BASOPHILS % (AUTO) 0.7 % (0-3); EOSINOPHILS % (AUTO) 4.2 % (0-5); MONOCYTES % (AUTO) 7.7 % (4-12); Mean Corpuscular Hemoglobin 28.6 pg (27.0-35.0); NEUTROPHILS % (AUTO) 56.6 % (40-74); Platelet Count 222 bil/L (150-400)
[2017-01-16 14:50] LABS: Lipase 18 U/L (13-60)
[2017-01-16 14:51] LABS: TROPONIN T < 0.010 ug/L (0.0-0.011)
[2017-01-16] MEDS ORDERED: MetoCLOpramide 5 mg/mL 2 mL Inj IVPUSH ONE (16:35)
[2017-01-16] MEDS ORDERED: HYDROmorphone 0.5 mg/0.5 mL iSecure Syringe IVPUSH ONE (16:35)
[2017-01-16 17:02] VITALS: BP 132/76; PULSE 82; RESP 17; O2SAT 100
== END 2017-01-16 17:05 | disposition home or self-care (01) ==
LOC: SED 13:19
DX: E11.43 Type 2 diabetes mellitus with diabetic autonomic (poly)neuropathy (principal); K31.84 Gastroparesis; I50.22 Chronic systolic (congestive) heart failure; I42.0 Dilated cardiomyopathy; I25.5 Ischemic cardiomyopathy; I25.10 Atherosclerotic heart disease of native coronary artery without angina pectoris; K21.9 Gastro-esophageal reflux disease without esophagitis; F17.200 Nicotine dependence, unspecified, uncomplicated; Z95.810 Presence of automatic (implantable) cardiac defibrillator; Z90.49 Acquired absence of other specified parts of digestive tract; Z79.84 Long term (current) use of oral hypoglycemic drugs; Z79.4 Long term (current) use of insulin; Z79.82 Long term (current) use of aspirin; Z88.5 Allergy status to narcotic agent
CPT/HCPCS: 36415; 80053; 80162; 83690; 84484; 85025; 93005; 96361; 96374; 96375; 96376; 99285; J1170; J1200; J2405; J2550; J2765; J7030

== ENCOUNTER 2017-01-23 19:43 | Emergency (ER) | payer MEDICARE ==
[~2017-01-23] VITALS: Ht 182.9 cm; Wt 92.7 kg
[~2017-01-23 19:43] MED LIST changes: -OXYC5TAB72 PO
[2017-01-23 19:45] VITALS: BP 154/95; PULSE 86; RESP 16; O2SAT 96
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
[2017-01-23] MEDS ORDERED: 0.9% Sodium Chloride 1,000 ML IV ONE (20:47)
[2017-01-23] MEDS ORDERED: ProchlorPERazine 5 mg/mL 2 mL Inj IVPUSH ONE (20:50)
[2017-01-23] MEDS ORDERED: LidocaineVisc 2%:Antacid 1:1 10 mL Syringe PO ONE (20:50)
[2017-01-23 21:04] LABS: Mean Corpuscular Hemoglobin 28.6 pg (27.0-35.0); Mean Corpuscular Volume 81.8 fL (81-100)
[2017-01-23 21:08] LABS: BASOPHILS % (AUTO) 0.9 % (0-3); EOSINOPHILS % (AUTO) 3.6 % (0-5); MONOCYTES % (AUTO) 10.3 % (4-12); NEUTROPHILS % (AUTO) 65.1 % (40-74); Platelet Count 214 bil/L (150-400)
[2017-01-23 22:05] VITALS: BP 119/70; PULSE 77; RESP 16; O2SAT 95
== END 2017-01-23 22:04 | disposition home or self-care (01) ==
LOC: SED 19:43
DX: E11.43 Type 2 diabetes mellitus with diabetic autonomic (poly)neuropathy (principal); K31.84 Gastroparesis; R10.13 Epigastric pain; F11.29 Opioid dependence with unspecified opioid-induced disorder; K21.9 Gastro-esophageal reflux disease without esophagitis; E11.40 Type 2 diabetes mellitus with diabetic neuropathy, unspecified; E78.5 Hyperlipidemia, unspecified; I50.22 Chronic systolic (congestive) heart failure; I25.5 Ischemic cardiomyopathy; I25.10 Atherosclerotic heart disease of native coronary artery without angina pectoris; F17.200 Nicotine dependence, unspecified, uncomplicated; Z87.19 Personal history of other diseases of the digestive system; Z95.810 Presence of automatic (implantable) cardiac defibrillator; Z79.82 Long term (current) use of aspirin; Z79.4 Long term (current) use of insulin; Z79.84 Long term (current) use of oral hypoglycemic drugs; Z88.5 Allergy status to narcotic agent
CPT/HCPCS: 36415; 80053; 83690; 85025; 96361; 96374; 99285; J0780; J7030

== ENCOUNTER 2017-01-27 09:38 | Emergency (ER) | payer MEDICARE ==
[~2017-01-27] VITALS: Ht 182.9 cm; Wt 92.7 kg
[2017-01-27 09:41] VITALS: BP 151/99; PULSE 90; RESP 14; O2SAT 96
[2017-01-27] MEDS ORDERED: LidocaineVisc 2%:Antacid 1:1 10 mL Syringe PO ONE (09:50)
--- NOTE | 2017-01-27 09:58 | ED.REPORT ---
HPI-Abd Pain M 40 and Over Date of Service Jan 27, 2017 ED Provider: Patient is a 55 year old male with a history of diabetes mellitus with gastroparesis, and heart failure, who is well known in the ED presents complaining of upper abdominal pain, nausea, and vomiting that woke him from sleep around 0500. He took 20 mg Reglan at 0530. His symptoms have continued to worse since onset. The patient states that his current symptoms are what he always experiences with his gastropareses. He is followed by Dr Holley for GI and recently saw a physician in [place]. He denies chest pain, bloody or tarry stools, diarrhea, dysuria, fever, or other complaints. He does not use marijuana. Nursing Notes Stated Complaint: NAUSEA/PAIN Chief Complaint: Male Abdominal Pain Nursing Notes Reviewed: Yes Allergies: Coded Allergies: morphine (Verified Adverse Reaction, Intermediate, emesis, 01/16/17) Scheduled Aspirin (Aspirin) 81 Mg Tablet 81 MG PO DAILY Atorvastatin Calcium (Atorvastatin Calcium) 20 Mg Tablet 40 MG PO HS Carvedilol (Carvedilol) 25 Mg Tablet 25 MG PO BIDWM Digoxin (Digoxin) 125 Mcg Tablet 125 MCG PO Daily 0900 Furosemide (Furosemide) 20 Mg Tab 20 MG PO MORNING Insulin Human Lispro (HumaLOG U100 Insulin Vial) 100 Unit/Ml Unit UNITS SUBQ ACHS Use sliding scale to adjust dose according to your blood glucose Lisinopril (Lisinopril) 5 Mg Tablet 7.5 MG PO BID Metformin (Metformin) 500 Mg Tablet 1,000 MG PO BIDWM Metoclopramide (Reglan) 10 Mg Tablet 20 MG PO TID NPH, Human Insulin Isophane (Novolin-N U100 Insulin Vial) 100 Unit/1 Ml Vial 80 UNITS SUBQ BIDAC Nitroglycerin 0.1 mg/hr Patch (Nitroglycerin 0.1 mg/hr Patch) 1 Each Patch.td24 1 PATCH TP DAILY Omeprazole (Omeprazole) 40 Mg Capsule.dr 40 MG PO DAILY Sertraline HCl (Sertraline) 100 Mg Tablet 100 MG PO BID Spironolactone (Spironolactone) 25 Mg Tablet 25 MG PO DAILY Scheduled PRN Lorazepam (Lorazepam) 1 Mg Tablet 0.5 MG PO Q8H PRN PRN For Anxiety or Agitation Ondansetron (Zofran) 4 Mg Tablet 4 MG PO Q4H PRN PRN For Nausea General Time Seen by MD: 09:55 Chief Complaint Abdominal pain Hx Obtained From: Patient Arrived By: Walk-in Sudden in Onset?: Yes Onset Occurred: 5 - 8 hours ago Symptom Duration: Since onset Progression since Onset: Constant Location: : Diffuse Quality: Same as prior, Painful Severity: Current: Moderate Severity: Maximum: Moderate Associated with: Reports: Nausea, Vomiting Pertinent Negative: Pt denies other symptoms Recent Healthcare: No recent hospitalization, Recent doctor visit Similar Sx Previous: Yes Past Medical History Past Medical History Notes: GI: [facility] Past Medical History 1. Hypertriglyceridemia. 2. Hyperlipidemia. 3. Chronic systolic congestive heart failure. 4. Dilated ischemic cardiomyopathy. 5. Coronary artery disease. 6. Insulin-dependent type 2 diabetes. 7. Diabetic gastroparesis. 8. Diabetic peripheral neuropathy. 9. Erosive gastritis. 10. Duodenitis. 11. Tobacco dependence. 12. Obstructive sleep apnea. 13. Depression. 14. Anxiety. 15. Pancreatitis 16. GERD Past Surgical History AICD Hemorrhoidectomy Endoscopy 02/07/[address] Henry, gastritis, mild duodenitis Reports: Cholecystectomy, Inguinal hernia repair Reports: AICD, Pacemaker insertion Family History Reviewed, not relevant Smoking History Current Every Day Smoker, Heavy Tobacco Smoker Social History Alcohol Use: "Social" Drug Use: Denies drug use Other Social History: Good social support, Frequent ED visitor, Local resident Occupation Not working; on disability Ambulatory Status Independent Review of Systems Constitutional: Denies: Chills, Fever Respiratory: Denies: Non-productive cough, Shortness of breath Cardiovascular: Denies: Chest pain GI: Reports: Abdominal pain, Nausea, Vomiting, Denies: Constipation, Diarrhea, Hematemesis, Hematochezia Male: Denies Dysuria, Denies Flank pain, Denies Hematuria Musculoskeletal: Denies: Back pain Complete sys rev & neg: except as marked. Physical Exam Initial Vital Signs Vital Signs (First) Date Time Temp Pulse Resp B/P Pulse Ox O2 Delivery O2 Flow Rate FiO2 01/27/17 09:41 36.2 90 14 151/99 96 Room Air Initial VS: Reviewed Head / Eyes: Atraumatic, Normocephalic, PERRL ENT: Mucous membranes moist, Conjunctiva normal, No scleral icterus Neck: Supple, Non-tender, Full range of motion Lymphatic: No lymphadenopathy Extremities: Vascular intact, Neuro intact, No swelling, No tenderness Skin: Warm, Dry, No cyanosis Neurologic: Alert, Oriented, Nonfocal Psychiatric: Mood/affect normal, Behavior normal, Normal thought content General/Constitutional: Awake, Alert, Cooperative Respiratory / Chest: Atraumatic, Breath sounds NL, Breath sounds = bilat, No respiratory distress, No rales, No rhonchi, No wheezing Cardiovascular: Heart rate NL, Regular rhythm, Heart sounds NL, No gallop, No murmurs, No rubs, Peripheral circulation NL Abdomen: Soft, No guarding, No rebound, BS normoactive, No distention, No hernia, No palpable mass, No pulsatile mass Tenderness across the upper abdomen c/w with previous presentations. Back: Inspection NL, Non-tender, No CVA tenderness Interpretation & Diagnostics ECG Interpretation ECG Interpretation: Sinus rhythm with a rate of 85 bpm No acute changes Time: 10:15 Interpreted by: ED physician Re-Eval/Medical Decision Source of Hx: Old records, Friend Time of Eval: 11:38 Re-Evaluation/Progress Note: Rechecked the patient. He is still nauseated and complaining of pain. Will order an additional dose of Dilaudid and try IV Reglan. Time of Eval: 13:20 Re-Evaluation/Progress Note: The patient is feeling much better. Will discharge home now. Counseled Regarding: Diagnosis, Lab results, Need for follow-up, When/why to return to ED Discharge & Departure Primary Impression: Abdominal pain Abdominal location: upper abdomen Qualified Code: R10.10 - Upper abdominal pain, unspecified Additional Impression: Gastroparesis Disposition: Home Vital Signs - All Vital Signs Date Time Temp Pulse Resp B/P Pulse Ox O2 Delivery O2 Flow Rate FiO2 01/27/17 13:26 36.6 82 16 151/82 96 Room Air 01/27/17 09:41 36.2 90 14 151/99 96 Room Air )( All Prior VS Reviewed: Yes Condition: Stable Additional Instructions: Thank you for entrusting us with your care today. I am glad you are feeling better. Please continue to followup with your GI specialist. Please return to the emergency department for any new or concerning symptoms. I can't wait to run into you at the store and you can tell me how well the botox is working! I wish you the best. Referrals: Shawn Ramos DO (PCP) Scribe Attestation Portions of this note were transcribed by Zamzam Amezquita. I, Dr. Mead personally performed the history, physical exam and medical decision-making; I reviewed and confirmed the accuracy of the information in the transcribed note. Signed by: Ayanna Marques, 01/27/2017 at 1345. copies to: Shawn Ramos Shawna L MD Jan 27, 2017 09:58 Zamzam Amezquita Jan 27, 2017 10:05
[2017-01-27] MEDS ORDERED: 0.9% Sodium Chloride 1,000 ML IV ONE (10:07)
[2017-01-27] MEDS ORDERED: HYDROmorphone 1 mg/mL Inj IVPUSH PRN (10:10)
[2017-01-27] MEDS ORDERED: Promethazine Inj 25 MG in 0.9% Sodium Chloride 50 ML IV ONE (10:10)
[2017-01-27] MEDS ORDERED: Ondansetron 2 mg/mL 2 mL Inj IVPUSH ONE (10:10)
[2017-01-27] MEDS ORDERED: HYDROmorphone 1 mg/mL Inj IVPUSH ONE ×2 (10:10→11:40)
[2017-01-27] MEDS ORDERED: 0.9% Sodium Chloride 50 ML ONE (10:39)
[2017-01-27] MEDS ORDERED: MetoCLOpramide 5 mg/mL 2 mL Inj IVPUSH ONE (11:40)
[2017-01-27 13:26] VITALS: BP 151/82; PULSE 82; RESP 16; O2SAT 96
== END 2017-01-27 13:26 | disposition home or self-care (01) ==
LOC: SED 09:38
DX: K31.84 Gastroparesis (principal); E11.43 Type 2 diabetes mellitus with diabetic autonomic (poly)neuropathy; E11.59 Type 2 diabetes mellitus with other circulatory complications; I50.22 Chronic systolic (congestive) heart failure; I25.10 Atherosclerotic heart disease of native coronary artery without angina pectoris; I25.5 Ischemic cardiomyopathy; E11.40 Type 2 diabetes mellitus with diabetic neuropathy, unspecified; E78.5 Hyperlipidemia, unspecified; K21.9 Gastro-esophageal reflux disease without esophagitis; F17.290 Nicotine dependence, other tobacco product, uncomplicated; Z95.5 Presence of coronary angioplasty implant and graft; Z79.82 Long term (current) use of aspirin; Z79.4 Long term (current) use of insulin; Z79.84 Long term (current) use of oral hypoglycemic drugs; Z88.5 Allergy status to narcotic agent
CPT/HCPCS: 90791; 93005; 96361; 96374; 96375; 96376; 99284; J1170; J1200; J2405; J2550; J2765; J7030

== ENCOUNTER 2017-01-29 09:09 | Emergency (ER) | payer MEDICARE ==
[~2017-01-29] VITALS: Ht 182.9 cm; Wt 92.7 kg
[2017-01-29 09:14] VITALS: BP 129/89; PULSE 101; RESP 12; O2SAT 96
--- NOTE | 2017-01-29 09:31 | ED.REPORT ---
HPI-Abd Pain M 40 and Over Date of Service Jan 29, 2017 ED Provider: Dr. Dyer Pt is a 56 year old male with a hx of gastroparesis, DM and heart failure presenting to the ED complaining of upper abdominal pain, nausea and vomiting x1 onset this morning. Denies fever, chills, or any other symptoms. He reports that these symptoms are the same as his usual gastroparesis episodes. He was seen in the ED 2 days ago with similar symptoms, and is a regular ED visitor. Pt took 10mg Reglan at 0600 without relief. He had an appointment scheduled at [facility] later today, but states that he cancelled it because he couldn't wait until then due to pain. Nursing Notes Stated Complaint: VOMITING/NAUSEA Chief Complaint: Male Abdominal Pain Nursing Notes Reviewed: Yes Allergies: Coded Allergies: morphine (Verified Adverse Reaction, Intermediate, emesis, 01/16/17) Scheduled Aspirin (Aspirin) 81 Mg Tablet 81 MG PO DAILY Atorvastatin Calcium (Atorvastatin Calcium) 20 Mg Tablet 40 MG PO HS Carvedilol (Carvedilol) 25 Mg Tablet 25 MG PO BIDWM Digoxin (Digoxin) 125 Mcg Tablet 125 MCG PO Daily 0900 Furosemide (Furosemide) 20 Mg Tab 20 MG PO MORNING Insulin Human Lispro (HumaLOG U100 Insulin Vial) 100 Unit/Ml Unit UNITS SUBQ ACHS Use sliding scale to adjust dose according to your blood glucose Lisinopril (Lisinopril) 5 Mg Tablet 7.5 MG PO BID Metformin (Metformin) 500 Mg Tablet 1,000 MG PO BIDWM Metoclopramide (Reglan) 10 Mg Tablet 20 MG PO TID NPH, Human Insulin Isophane (Novolin-N U100 Insulin Vial) 100 Unit/1 Ml Vial 80 UNITS SUBQ BIDAC Nitroglycerin 0.1 mg/hr Patch (Nitroglycerin 0.1 mg/hr Patch) 1 Each Patch.td24 1 PATCH TP DAILY Omeprazole (Omeprazole) 40 Mg Capsule.dr 40 MG PO DAILY Sertraline HCl (Sertraline) 100 Mg Tablet 100 MG PO BID Spironolactone (Spironolactone) 25 Mg Tablet 25 MG PO DAILY Scheduled PRN Lorazepam (Lorazepam) 1 Mg Tablet 0.5 MG PO Q8H PRN PRN For Anxiety or Agitation Ondansetron (Zofran) 4 Mg Tablet 4 MG PO Q4H PRN PRN For Nausea General Time Seen by MD: 09:30 Chief Complaint Abdominal pain Hx Obtained From: Patient Arrived By: Walk-in Sudden in Onset?: Yes Onset Occurred: Just prior to arrival Symptom Duration: Since onset Progression since Onset: Constant Location: : Abdomen upper Quality: Painful Radiation: : Does not radiate Severity: Current: Mild Severity: Maximum: Moderate Recent Healthcare: No recent hospitalization, Recent doctor visit Similar Sx Previous: Yes Past Medical History Past Medical History Notes: GI: [facility] Past Medical History 1. Hypertriglyceridemia. 2. Hyperlipidemia. 3. Chronic systolic congestive heart failure. 4. Dilated ischemic cardiomyopathy. 5. Coronary artery disease. 6. Insulin-dependent type 2 diabetes. 7. Diabetic gastroparesis. 8. Diabetic peripheral neuropathy. 9. Erosive gastritis. 10. Duodenitis. 11. Tobacco dependence. 12. Obstructive sleep apnea. 13. Depression. 14. Anxiety. 15. Pancreatitis 16. GERD Past Surgical History AICD Hemorrhoidectomy Endoscopy 02/07/[address] Henry, gastritis, mild duodenitis Reports: Cholecystectomy, Inguinal hernia repair Reports: AICD, Pacemaker insertion Family History Reviewed, not relevant Smoking History Current Every Day Smoker, Heavy Tobacco Smoker Social History Alcohol Use: "Social" Drug Use: Denies drug use Other Social History: Good social support, Frequent ED visitor, Local resident Occupation Not working; on disability Ambulatory Status Independent Review of Systems Constitutional: Denies: Chills, Fever GI: Reports: Abdominal pain, Nausea, Vomiting Complete sys rev & neg: except as marked. Physical Exam Initial Vital Signs Vital Signs (First) Date Time Temp Pulse Resp B/P Pulse Ox O2 Delivery O2 Flow Rate FiO2 01/29/17 09:14 36.3 101 12 129/89 96 Room Air Initial VS: Reviewed, Vital signs normal Head / Eyes: Atraumatic, Normocephalic, PERRL ENT: Mucous membranes moist, Conjunctiva normal, No scleral icterus Skin: Warm, Dry, No cyanosis Neurologic: Alert, Oriented, Nonfocal Psychiatric: Mood/affect normal, Behavior normal, Normal thought content General/Constitutional: Awake, Alert, No acute distress, Well appearing Respiratory / Chest: Breath sounds NL, Breath sounds = bilat, No respiratory distress, No rales, No rhonchi, No wheezing Cardiovascular: Heart rate NL, Regular rhythm, Heart sounds NL, Peripheral circulation NL Abdomen: Atraumatic, No palpable mass Intermittent voluntary guarding to the epigastric and right middle quadrant. Back: Atraumatic, Inspection NL Re-Eval/Medical Decision Med Decision/Clinical Course This patient has known gastroparesis and has had multiple visits emergency department. We received a call from them unless he stated that the patient says he did come to the emergency room because he wanted Dilaudid, he has a 4: 00 appointment. The patient did admit that he cannot receive narcotics there is sensitivity emergency department. In looking through his records last ED report wanted him to get his pain medications from Dr. Holley or his primary care physician. I contacted the ER director's recommendation was to follow the ED report unless something else was abnormal. The patient has his usual presentation and was treated with fluids, Toradol, and Zofran. He did not have any episodes of emesis in the emergency department. I explained to him about his need to go through his primary care physician or Dr. Holley. Time of Eval: 11:27 Patient Status: Condition improved Re-Evaluation/Progress Note: Pt would like to stay in the ED a little longer. He has had no episodes of emesis. Time of Eval: 11:45 Patient Status: Condition improved Re-Evaluation/Progress Note: Discussed plan for discharge. Pt understands and agrees. Counseled Regarding: Diagnosis, Lab results, Need for follow-up, When/why to return to ED Discharge & Departure Primary Impression: Gastroparesis Disposition: Home Vital Signs - All Vital Signs Date Time Temp Pulse Resp B/P Pulse Ox O2 Delivery O2 Flow Rate FiO2 01/29/17 11:49 36.6 86 141/95 94 Room Air 01/29/17 09:14 36.3 101 12 129/89 96 Room Air )( All Prior VS Reviewed: Yes Condition: Improved Patient Instructions: Diabetic gastroparesis (GEN) Additional Instructions: No dangerous cause for your abdominal pain was identified. Keep your 4:00 appointment today. Discuss additional pain control with your primary care physician or Dr. Holley. Referrals: Shawn Ramos DO (PCP) Luis Antonio Holley MD Scribe Attestation Portions of this note were transcribed by Verito Golden. I, Dr. Dyer personally performed the history, physical exam and medical decision-making; I reviewed and confirmed the accuracy of the information in the transcribed note. Signed by : Ayanna Dias, 01/29/2017 and 1145. copies to: Shawn Ramos DO; Luis Antonio Holley MD, Jena M MD Jan 29, 2017 09:31 VERITO GOLDEN Jan 29, 2017 09:55
[2017-01-29] MEDS ORDERED: 0.9% Sodium Chloride 1,000 ML IV ONE (10:15)
[2017-01-29] MEDS ORDERED: Ondansetron 2 mg/mL 2 mL Inj IVPUSH PRN (10:15)
[2017-01-29] MEDS ORDERED: Ketorolac 15 mg/mL Inj IVPUSH ONE (10:15)
[2017-01-29 11:49] VITALS: BP 141/95; PULSE 86; O2SAT 94
== END 2017-01-29 11:45 | disposition home or self-care (01) ==
LOC: SED 09:09
DX: K31.84 Gastroparesis (principal); E11.43 Type 2 diabetes mellitus with diabetic autonomic (poly)neuropathy; K21.9 Gastro-esophageal reflux disease without esophagitis; I50.22 Chronic systolic (congestive) heart failure; I25.10 Atherosclerotic heart disease of native coronary artery without angina pectoris; E78.5 Hyperlipidemia, unspecified; Z79.899 Other long term (current) drug therapy; Z79.84 Long term (current) use of oral hypoglycemic drugs; Z79.4 Long term (current) use of insulin; F17.210 Nicotine dependence, cigarettes, uncomplicated; Z88.5 Allergy status to narcotic agent
CPT/HCPCS: 96361; 96374; 96375; 99284; J1885; J2405; J7030

== ENCOUNTER 2017-05-29 20:29 | Emergency (ER) | payer MEDICARE ==
[~2017-05-29] VITALS: Ht 182.9 cm; Wt 90.9 kg
[2017-05-29 20:32] VITALS: BP 132/81; PULSE 88; RESP 18; O2SAT 96
[2017-05-29 22:01] LABS: BASOPHILS % (AUTO) 0.6 % (0-3); EOSINOPHILS % (AUTO) 2.6 % (0-5); Mean Corpuscular Hemoglobin 28.7 pg (27.0-35.0); Mean Corpuscular Volume 79.4 fL (81-100); NEUTROPHILS % (AUTO) 64.5 % (40-74); Platelet Count 194 bil/L (150-400)
[2017-05-29 22:13] LABS: APPEARANCE,URINE CLEAR (CLEAR,HAZY); COLOR,URINE DARK YELLOW (YELLOW)
[2017-05-29 22:14] LABS: OCCULT BLOOD,URINE NEGATIVE (NEGATIVE)
[2017-05-29 22:22] LABS: Magnesium 1.9 mg/dL (1.6-2.6)
[2017-05-29] MEDS ORDERED: Ondansetron 2 mg/mL 2 mL Inj IVPUSH PRN (22:40)
[2017-05-29] MEDS ORDERED: HYDROmorphone 0.5 mg/0.5 mL iSecure Syringe IVPUSH ONE ×2 (22:40→23:20)
--- NOTE | 2017-05-29 23:26 | ED.REPORT ---
HPI-Abd Pain M 40 and Over Date of Service May 29, 2017 ED Provider: Lars Patton MD 56-year-old male with past medical history of gastroparesis, pancreatitis presents today with left lower quadrant abdominal pain. Patient states that his pain began 3 days ago and has been getting progressively worse. This is not typical for pain he experienced gastroparesis. Pain is described as dull achy pain in the left lower quadrant which radiates to the back. Pain is 9/10. Patient does not know anything that makes pain better or worse. Patient describes increased nausea. Denies fever, chills, vomiting. Nursing Notes Stated Complaint: LOWER ABDOMINAL PAIN/BACK PAIN Chief Complaint: Male Abdominal Pain Nursing Notes Reviewed: Yes Allergies: Coded Allergies: morphine (Verified Adverse Reaction, Intermediate, emesis, 05/29/17) Scheduled Aspirin (Aspirin) 81 Mg Tablet 81 MG PO DAILY Atorvastatin Calcium (Atorvastatin Calcium) 20 Mg Tablet 40 MG PO HS Carvedilol (Carvedilol) 25 Mg Tablet 25 MG PO BIDWM Digoxin (Digoxin) 125 Mcg Tablet 125 MCG PO Daily 0900 Furosemide (Furosemide) 20 Mg Tab 20 MG PO MORNING Insulin Human Lispro (HumaLOG U100 Insulin Vial) 100 Unit/Ml Unit UNITS SUBQ ACHS Use sliding scale to adjust dose according to your blood glucose Levofloxacin (Levofloxacin) 750 Mg Tablet 750 MG PO DAILY Lisinopril (Lisinopril) 5 Mg Tablet 7.5 MG PO BID Metformin (Metformin) 500 Mg Tablet 1,000 MG PO BIDWM Metoclopramide (Reglan) 10 Mg Tablet 20 MG PO TID Metronidazole (Metronidazole) 500 Mg Tablet 500 MG PO TID NPH, Human Insulin Isophane (Novolin-N U100 Insulin Vial) 100 Unit/1 Ml Vial 80 UNITS SUBQ BIDAC Nitroglycerin 0.1 mg/hr Patch (Nitroglycerin 0.1 mg/hr Patch) 1 Each Patch.td24 1 PATCH TP DAILY Omeprazole (Omeprazole) 40 Mg Capsule.dr 40 MG PO DAILY Sertraline HCl (Sertraline) 100 Mg Tablet 100 MG PO BID Spironolactone (Spironolactone) 25 Mg Tablet 25 MG PO DAILY Scheduled PRN Lorazepam (Lorazepam) 1 Mg Tablet 0.5 MG PO Q8H PRN PRN For Anxiety or Agitation Ondansetron (Zofran) 4 Mg Tablet 4 MG PO Q4H PRN PRN For Nausea Ondansetron (Zofran) 4 Mg Tablet 4 MG PO Q4H PRN PRN For Nausea oxyCODONE-Acetaminophen 5-325 mg (oxyCODONE-Acetaminophen 5-325 mg) 1 Each Tablet 1 TAB PO Q6H PRN PRN For Pain General Time Seen by MD: 09:07 Chief Complaint Abdominal pain, Flank pain left Hx Obtained From: Patient Arrived By: Walk-in Sudden in Onset?: No Onset Occurred: 3 days ago Symptom Duration: Waxes and wanes Location: : Flank right: LLQ Quality: Aching, Painful Radiation: : Back Severity: Current: Pain level 9 out of 10 Associated with: Reports: Back pain Similar Sx Previous: No Risk Factors )( AAA Risk Stratification Risk factors reviewed CAD Risk Stratification Risk factors reviewed TAD Risk Stratification Risk factors reviewed Past Medical History Past Medical History Notes: GI: [facility] Past Medical History 1. Hypertriglyceridemia. 2. Hyperlipidemia. 3. Chronic systolic congestive heart failure. 4. Dilated ischemic cardiomyopathy. 5. Coronary artery disease. 6. Insulin-dependent type 2 diabetes. 7. Diabetic gastroparesis. 8. Diabetic peripheral neuropathy. 9. Erosive gastritis. 10. Duodenitis. 11. Tobacco dependence. 12. Obstructive sleep apnea. 13. Depression. 14. Anxiety. 15. Pancreatitis 16. GERD Past Surgical History AICD Hemorrhoidectomy Endoscopy 02/07/[address] Henry, gastritis, mild duodenitis Reports: Cholecystectomy, Inguinal hernia repair Reports: AICD, Pacemaker insertion Family History Reviewed, not relevant Smoking History Current Every Day Smoker, Heavy Tobacco Smoker Social History Alcohol Use: "Social" Drug Use: Denies drug use Other Social History: Good social support, Frequent ED visitor, Local resident Occupation Not working; on disability Ambulatory Status Independent Review of Systems Complete sys rev & neg: except as marked. Physical Exam Initial Vital Signs Vital Signs (First) Date Time Temp Pulse Resp B/P Pulse Ox O2 Delivery O2 Flow Rate FiO2 05/29/17 20:32 36.6 88 18 132/81 96 Room Air Initial VS: Reviewed, Vital signs normal Head / Eyes: Atraumatic, Normocephalic, PERRL ENT: Mucous membranes moist, Conjunctiva normal, No scleral icterus Neck: Supple, Non-tender, Full range of motion Extremities: Vascular intact, Neuro intact, No swelling, No tenderness Skin: Warm, Dry, No cyanosis Neurologic: Alert, Oriented, Nonfocal Psychiatric: Mood/affect normal, Behavior normal, Normal thought content Abdomen: Atraumatic, Soft, BS normoactive, No distention Tenderness/Guarding/Rebound: Positive: Tender LLQ... (Moderate), Tender flank L Interpretation & Diagnostics Lab Results Interpretation Result Diagram: 05/29/17215705/29/172157 Test 05/29/17 21:49 05/29/17 21:58 Urine Color Dark yellow (YELLOW) Urine Appearance Clear (CLEAR,HAZY) Urine pH 6.0 (5.0-8.0) Urine Specific [place] 1.005 (1.003-1.035) Urine Protein Negativemg/dL (NEG,TRACE) Urine Glucose (UA) Negativemg/dL (NEGATIVE) Urine Ketones Negativemg/dL (NEGATIVE) Urine Occult Blood Negative (NEGATIVE) Urine Nitrite Negative (NEGATIVE) Urine Bilirubin Negative (NEGATIVE) Urine Urobilinogen 1.0mg/dL (NORMAL) Urine Leukocyte Esterase Negative (NEGATIVE) Urine RBC 0-2/hpf (0-2) Urine WBC 0-5/hpf (0-5) Urine Epithelial Cells Occasional/hpf (NONE-MOD) Urine Crystals None seen (NONE SEEN) Urine Bacteria None/hpf (NONE-FEW) Urine Hyaline Casts Rare/lpf (NONE) Urine Granular Casts None seen (NONE SEEN) Urine Waxy Casts None seen (NONE SEEN) Urine Red Blood Cell Casts None seen (NONE SEEN) Urine White Blood Cell Casts None seen (NONE SEEN) Urine Mucus None seen (None Seen) Urine Trichomonas None seen (NONE SEEN) Urine Yeast None (NONE SEEN) Urinalysis Comment None Urine Culture Reflexed Not indicated White Blood Count 10.4th/mm3 (3.8-10.1) Red Blood Count 5.96mil/mm3 (4.40-5.80) Hemoglobin 17.1g/dL (13.8-17.2) Hematocrit 47.3% (41.0-50.0) Mean Corpuscular Volume 79.4fL (81-100) Mean Corpuscular Hemoglobin 28.7pg (27.0-35.0) Mean Corpuscular Hemoglobin Concent 36.2% (32.0-37.0) Red Cell Distribution Width 15.3% (12.3-15.4) Platelet Count 194bil/L (150-400) Neutrophils (%) (Auto) 64.5% (40-74) Lymphocytes (%) (Auto) 20.6% (14-46) Monocytes (%) (Auto) 11.0% (4-12) Eosinophils (%) (Auto) 2.6% (0-5) Basophils (%) (Auto) 0.6% (0-3) Sodium Level 130mEq/L (134-144) Potassium Level 4.0mEq/L (3.5-5.2) Chloride Level 94mEq/L (97-108) Carbon Dioxide Level 19mmol/L (18-29) Blood Urea Nitrogen 16mg/dL (6-24) Creatinine 0.93mg/dL (0.76-1.27) Estimat Glomerular Filtration Rate 90mL/min (>59) Glucose Level 111mg/dL (60-99) Calcium Level 9.5mg/dL (8.5-10.1) Magnesium Level 1.9mg/dL (1.6-2.6) Total Bilirubin 0.8mg/dL (0.0-1.2) Aspartate Amino Transf (AST/SGOT) 14U/L (0-50) Alanine Aminotransferase (ALT/SGPT) 16U/L (0-44) Alkaline Phosphatase 109U/L (25-150) Total Protein 7.3g/dL (6.4-8.4) Albumin 4.1g/dL (3.4-5.0) Lipase 9U/L (13-60) Hold Canseco Top Tube Received (Received) Lab Results Interpretation: White count slightly elevated, likely due to diverticulitis. Other lab findings and insignificant CT Abd / Pelvis Interpretation Conclusion: Mild acute diverticulitis involving the distal descending colon. Study type: Abdominal CT IV contrast Interpretation / Wet Read by: Interpret - Radiologist NL CT Abdomen Findings: No mass, No free fluid, No free air, No bowel obstruction, Liver and gallbladder NL, Spleen and pancreas NL, Kidneys normal, Aorta normal, Pelvic organs normal Re-Eval/Medical Decision Med Decision/Clinical Course 56-year-old with a history of pancreatitis presents with a different pain in his left lower quadrant abdomen. CT shows mild diverticulitis. No evidence of perforation, free fluid, or other serious findings. Good candidate for outpatient by mouth antibiotics, and is therefore discharged with Levaquin and metronidazole. Brief supply of Percocet and stool softener. Follow-up with PCP this week. CT scan and physical findings suggest the presence of an acute diverticulitis. The patient is having no fevers or vomiting, or changes in vital signs in conjunction with this diverticulitis and for these reasons I believe it can be easily managed as an outpatient. The patient will be sent home with antibiotics appropriate for diverticulitis coverage, and the appropriate return to ED instructions. Counseled Regarding: Diagnosis, Lab results, Need for follow-up, When/why to return to ED Discharge & Departure Primary Impression: Diverticulitis Diverticulitis site: large intestine Diverticulitis bleeding: without bleeding Diverticulitis complication: without perforation or abscess Qualified Code: K57.32 - Diverticulitis of large intestine without perforation or abscess without bleeding Additional Impression: Opiate dependence Substance use status: uncomplicated Qualified Code: F11.20 - Opioid dependence, uncomplicated Disposition: Home Vital Signs - All Vital Signs Date Time Temp Pulse Resp B/P Pulse Ox O2 Delivery O2 Flow Rate FiO2 05/30/17 00:30 85 18 119/82 95 Room Air 05/29/17 20:32 36.6 88 18 132/81 96 Room Air )( All Prior VS Reviewed: Yes Condition: Stable Patient Instructions: Diverticulitis (ED) Additional Instructions: You presented to emergency department today with abdominal pain the left lower quadrant. On the CT scan we were able to visualize a diverticulitis. In order to manage this we have prescribed levofloxacin as well as metronidazole to help decrease inflammation and infection. This you will take for the next 5 days. We will send you home with some Zofran as well as Percocet for pain. Take as needed. Begin a small dose of MiraLAX initially, an increase over the next couple of days if no bowel movement has been seen, is avoid excessive use of MiraLAX as this may cause diarrhea, dehydration, and more dangerously, however unlikely, bowel perforation is setting. Follow-up with primary care as needed. After approximately 7 days I suggest you begin a high-fiber diet, to decrease the likelyhood of recurrence. Please return to emergency department if he experiences high fever, vomiting, chills, lethargy. Referrals: Shawn Ramos DO (PCP) copies to: Shawn Ramos Adam J DO May 29, 2017 22:14 Lars Patton MD May 30, 2017 07:34
[2017-05-29] MEDS ORDERED: OXYC1TAB24 PO (23:30)
[2017-05-29] MEDS ORDERED: METR500T19 PO (23:35)
[2017-05-29] MEDS ORDERED: LEVO750T39 PO ×2 (23:35→23:38)
[2017-05-29] MEDS ORDERED: _oxyCODONE/APAP 5-325 mg Tablet PO PRN (23:35)
[2017-05-29] MEDS ORDERED: ONDA4TAB6 PO (23:35)
[2017-05-29] MEDS ORDERED: _Ondansetron ODT 4 mg Tablet PO PRN (23:35)
[2017-05-29] MEDS ORDERED: levoFLOXacin 750 mg Tablet PO ONE (23:40)
[2017-05-30 00:30] VITALS: BP 119/82; PULSE 85; RESP 18; O2SAT 95
--- NOTE | 2017-05-30 08:05 | DRSVH ---
PROCEDURE: CT ABDOMEN AND PELVIS WITH CONTRAST ([id number]) INDICATIONS: abd pain TECHNIQUE: After the administration of intravenous contrast, 5 mm thick sections acquired from the diaphragm to the symphysis. 5 mm coronal and sagittal reformats were acquired. For radiation dose reduction, the following was used: automated exposure control, adjustment of mA and/or kV according to patient siz e. COMPARISON: CT abdomen and pelvis 10/18/2016, 04/09/2015, 12/27/2013 FINDINGS: Preliminary report by machinist 2nd shift radiology Image quality: Excellent. ABDOMEN: Lung bases: Lung bases are clear. Heart size is normal. Partially visualized pacemaker. Solid organs: Liver and spleen are normal in size and enhancement. Gallbladder is surgically absent . Biliary system is non dilated. Pancreas enhances normally. No adrenal nodules. Kidneys demonstr ate normal size and enhancement, without hydronephrosis. Peritoneum and bowel: Bowel loops demonstrate normal wall thickness and caliber. Normal appendix. Co lonic diverticulosis again noted. There is focal wall thickening and inflammatory peridiverticular fa t stranding at the junction of the descending and sigmoid colon, such as series 2/image 70, consisten t with acute diverticulitis. No free fluid or air. Nodes and vessels: No retroperitoneal or mesenteric adenopathy by size criteria. Atheromatous aorta and inferior vena cava are normal in size. Miscellaneous: No ventral hernias. PELVIS: Genitourinary: Bladder wall thickness is normal. Miscellaneous: No inguinal hernias or adenopathy. Bones: No suspicious bony lesions. No vertebral body compression fractures. IMPRESSION: 1. Colonic diverticulosis with focal diverticulitis at the junction of the descending and sigmoid col on. No associated abscess or extraluminal air are seen. 2. Atherosclerosis without aneurysm. 3. Status post cholecystectomy and cardiac pacemaker. Findings are concordant with the preliminary report. Dictated by: Nacho Tate M.D. on 05/30/2017 at 7:55 Approved by: Nacho Tate M.D. on 05/30/2017 at 8:03
== END 2017-05-30 00:31 | disposition home or self-care (01) ==
LOC: SED 20:29
DX: K57.32 Diverticulitis of large intestine without perforation or abscess without bleeding (principal); F11.20 Opioid dependence, uncomplicated; E78.5 Hyperlipidemia, unspecified; I11.0 Hypertensive heart disease with heart failure; I50.22 Chronic systolic (congestive) heart failure; K21.9 Gastro-esophageal reflux disease without esophagitis; E11.43 Type 2 diabetes mellitus with diabetic autonomic (poly)neuropathy; F17.200 Nicotine dependence, unspecified, uncomplicated; Z95.0 Presence of cardiac pacemaker; Z79.82 Long term (current) use of aspirin; Z79.84 Long term (current) use of oral hypoglycemic drugs; Z88.5 Allergy status to narcotic agent
CPT/HCPCS: 36415; 74177; 80053; 81000; 83690; 83735; 85025; 96374; 96375; 96376; 99285; J1170; J2405; Q9967

== ENCOUNTER 2017-06-01 11:43 | Emergency (ER) | payer MEDICARE ==
[~2017-06-01] VITALS: Ht 182.9 cm; Wt 90.0 kg
[~2017-06-01 11:43] MED LIST changes: +LEVO750T39 PO; +METR500T19 PO; +OXYC1TAB24 PO
[2017-06-01 12:04] VITALS: BP 106/75; PULSE 83; RESP 16; O2SAT 99
--- NOTE | 2017-06-01 12:20 | ED.REPORT ---
HPI-General Illness Date of Service Jun 01, 2017 ED Provider: Shaan Pantoja DO 56-year-old female past medical history of gastritis, GERD, and recently seen in the ER for diverticulitis returns today with left lower quadrant abdominal pain 8/10 which radiates to the back. Patient was discharged from ER with Percocet, Zofran, metronidazole, levofloxacin. Today he states that his pain is the same as it was 3 days ago, and he has not developed any new symptoms since that time. He states that he ran out of his Percocet, and he has vomited once this morning. He states his food intake has been considerably less. He states that he had a bowel movement this morning which was small but normal. He denies fever chills. Nursing Notes Stated Complaint: DIVERTICULITIS Chief Complaint: Male Abdominal Pain Nursing Notes Reviewed: Yes Allergies: Coded Allergies: morphine (Verified Adverse Reaction, Intermediate, emesis, 06/01/17) Scheduled Aspirin (Aspirin) 81 Mg Tablet 81 MG PO DAILY Atorvastatin Calcium (Atorvastatin Calcium) 20 Mg Tablet 40 MG PO HS Carvedilol (Carvedilol) 25 Mg Tablet 25 MG PO BIDWM Digoxin (Digoxin) 125 Mcg Tablet 125 MCG PO Daily 0900 Furosemide (Furosemide) 20 Mg Tab 20 MG PO MORNING Insulin Human Lispro (HumaLOG U100 Insulin Vial) 100 Unit/Ml Unit UNITS SUBQ ACHS Use sliding scale to adjust dose according to your blood glucose Levofloxacin (Levofloxacin) 750 Mg Tablet 750 MG PO DAILY Lisinopril (Lisinopril) 5 Mg Tablet 7.5 MG PO BID Metformin (Metformin) 500 Mg Tablet 1,000 MG PO BIDWM Metoclopramide (Reglan) 10 Mg Tablet 20 MG PO TID Metronidazole (Metronidazole) 500 Mg Tablet 500 MG PO TID NPH, Human Insulin Isophane (Novolin-N U100 Insulin Vial) 100 Unit/1 Ml Vial 80 UNITS SUBQ BIDAC Nitroglycerin 0.1 mg/hr Patch (Nitroglycerin 0.1 mg/hr Patch) 1 Each Patch.td24 1 PATCH TP DAILY Omeprazole (Omeprazole) 40 Mg Capsule.dr 40 MG PO DAILY Sertraline HCl (Sertraline) 100 Mg Tablet 100 MG PO BID Spironolactone (Spironolactone) 25 Mg Tablet 25 MG PO DAILY Scheduled PRN Lorazepam (Lorazepam) 1 Mg Tablet 0.5 MG PO Q8H PRN PRN For Anxiety or Agitation Ondansetron (Zofran) 4 Mg Tablet 4 MG PO Q4H PRN PRN For Nausea Ondansetron (Zofran) 4 Mg Tablet 4 MG PO Q4H PRN PRN For Nausea oxyCODONE-Acetaminophen 5-325 mg (oxyCODONE-Acetaminophen 5-325 mg) 1 Each Tablet 1 TAB PO Q6H PRN PRN For Pain oxyCODONE-Acetaminophen 5-325 mg (oxyCODONE-Acetaminophen 5-325 mg) 1 Each Tablet 1 TAB PO Q6H PRN PRN For Pain General Time Seen by MD: 12:14 Chief Complaint Abdominal pain Hx Obtained From: Patient Arrived By: Walk-in Sudden in Onset?: No Onset Occurred: 1 week ago Symptom Duration: 1 week Severity: Current: Pain level 8 out of 10 Recent Healthcare: Recent doctor visit, Prior workup Past Medical History Past Medical History Notes: GI: [facility] Past Medical History 1. Hypertriglyceridemia. 2. Hyperlipidemia. 3. Chronic systolic congestive heart failure. 4. Dilated ischemic cardiomyopathy. 5. Coronary artery disease. 6. Insulin-dependent type 2 diabetes. 7. Diabetic gastroparesis. 8. Diabetic peripheral neuropathy. 9. Erosive gastritis. 10. Duodenitis. 11. Tobacco dependence. 12. Obstructive sleep apnea. 13. Depression. 14. Anxiety. 15. Pancreatitis 16. GERD Past Surgical History AICD Hemorrhoidectomy Endoscopy 02/07/[address] Henry, gastritis, mild duodenitis Reports: Cholecystectomy, Inguinal hernia repair Reports: AICD, Pacemaker insertion Family History Reviewed, not relevant Smoking History Current Every Day Smoker, Heavy Tobacco Smoker Social History Alcohol Use: "Social" Drug Use: Denies drug use Other Social History: Good social support, Frequent ED visitor, Local resident Occupation Not working; on disability Ambulatory Status Independent Review of Systems Full Review of Systems Constitutional: Denies: Chills, Fatigue, Fever Respiratory: Denies: Dyspnea on exertion, Non-productive cough, Pleuritic pain Cardiovascular: Denies: Chest pain, Edema GI: Reports: Abdominal pain, Nausea, Vomiting, Denies: Constipation, Diarrhea, Hematemesis Complete sys rev & neg: except as marked. Physical Exam Vital Signs Vital Signs Date Time Temp Pulse Resp B/P Pulse Ox O2 Delivery O2 Flow Rate FiO2 06/01/17 14:14 66 16 108/48 97 Room Air 06/01/17 12:04 36.2 83 16 106/75 99 Room Air Initial VS: Reviewed, Vital signs normal General/Constitutional: Well-developed, Well-nourished Head / Eyes: Atraumatic, Normocephalic, PERRL ENT: Mucous membranes moist, Conjunctiva normal, No scleral icterus Neck: Supple, Non-tender, Full range of motion Respiratory: Breath sounds normal, Clear to auscultation, No respiratory distress Cardiovascular: Regular rate & rhythm, Heart sounds normal, Intact distal pulses Abdomen / GI: Soft, No guarding, No rebound, No distention Extremities: Vascular intact, Neuro intact, No swelling, No tenderness Skin: Warm, Dry, No cyanosis Neurologic: Alert, Oriented, Nonfocal Psychiatric: Mood/affect normal, Behavior normal, Normal thought content Abdomen: Atraumatic, Soft, BS normoactive, No distention Tenderness/Guarding/Rebound: Positive: Tender LLQ... (Moderate) Interpretation & Diagnostics Lab Results Interpretation Result Diagram: 06/01/17 1308 06/01/17 1308 Test 06/01/17 13:08 White Blood Count 7.3th/mm3 (3.8-10.1) Red Blood Count 6.06mil/mm3 (4.40-5.80) Hemoglobin 17.2g/dL (13.8-17.2) Hematocrit 47.7% (41.0-50.0) Mean Corpuscular Volume 78.7fL (81-100) Mean Corpuscular Hemoglobin 28.4pg (27.0-35.0) Mean Corpuscular Hemoglobin Concent 36.1% (32.0-37.0) Red Cell Distribution Width 15.0% (12.3-15.4) Platelet Count 231bil/L (150-400) Neutrophils (%) (Auto) 55.3% (40-74) Lymphocytes (%) (Auto) 27.4% (14-46) Monocytes (%) (Auto) 12.1% (4-12) Eosinophils (%) (Auto) 3.9% (0-5) Basophils (%) (Auto) 0.6% (0-3) Sodium Level 129mEq/L (134-144) Potassium Level 3.9mEq/L (3.5-5.2) Chloride Level 95mEq/L (97-108) Carbon Dioxide Level 16mmol/L (18-29) Blood Urea Nitrogen 20mg/dL (6-24) Creatinine 1.02mg/dL (0.76-1.27) Estimat Glomerular Filtration Rate 81mL/min (>59) Glucose Level 121mg/dL (60-99) Calcium Level 9.6mg/dL (8.5-10.1) Magnesium Level 1.9mg/dL (1.6-2.6) Total Bilirubin 1.1mg/dL (0.0-1.2) Aspartate Amino Transf (AST/SGOT) 19U/L (0-50) Alanine Aminotransferase (ALT/SGPT) 19U/L (0-44) Alkaline Phosphatase 107U/L (25-150) Total Protein 7.4g/dL (6.4-8.4) Albumin 4.0g/dL (3.4-5.0) Lipase 11U/L (13-60) Hold Canseco Top Tube Received (Received) Lab Results Interpretation: Labs are clinically insignificant. Re-Eval/Medical Decision Med Decision/Clinical Course For the patient's symptoms today despite his possible that, the antibiotics he was prescribed and not working appropriately, or the patient has developed large bowel obstruction since that time we initially saw him. For this reason the patient is worked up with x-ray as well as appropriate blood work. X-ray findings are non-acute. Lab findings suggest that the infection is improving with the current medications. Counseled Regarding: Diagnosis, Lab results, Need for follow-up, When/why to return to ED Discharge & Departure Primary Impression: Diverticulitis Diverticulitis site: large intestine Diverticulitis bleeding: without bleeding Diverticulitis complication: without perforation or abscess Qualified Code: K57.32 - Diverticulitis of large intestine without perforation or abscess without bleeding Additional Impression: Left lower quadrant abdominal tenderness Presence of rebound: absent Qualified Code: R10.814 - Left lower quadrant abdominal tenderness Disposition: Home Discharge Condition All VS Reviewed: Yes Condition: Stable Patient Instructions: Diverticulitis (ED) Additional Instructions: The lab results regarding her visit today indicate that the infection is improving. X-ray did not find any sign of blockage. You will continue taking the level levofloxacin and metronidazole as previously prescribed You continue taking Zofran as previously prescribed You will also be given Percocet to cover for the next 3-4 days of pain as needed. I would fully expect that your pain should be tolerable by the end of this period. Increase her dose of MiraLAX, as well as your daily dose of food. Referrals: Shawn Ramos DO (PCP) Attending Statement The patient was seen and examined together with Dr. Danielson on 06/01/17 and I have added additional information to the note above. copies to: Shawn Ramos Timothy S DO Jun 01, 2017 12:20 Luther Salazar DO Jun 01, 2017 12:30
[2017-06-01] MEDS ORDERED: Ondansetron 2 mg/mL 2 mL Inj ONE (13:12)
[2017-06-01 13:17] LABS: BASOPHILS % (AUTO) 0.6 % (0-3); EOSINOPHILS % (AUTO) 3.9 % (0-5); MONOCYTES % (AUTO) 12.1 % (4-12); Mean Corpuscular Hemoglobin 28.4 pg (27.0-35.0); Mean Corpuscular Volume 78.7 fL (81-100); NEUTROPHILS % (AUTO) 55.3 % (40-74); Platelet Count 231 bil/L (150-400)
[2017-06-01] MEDS: HYDROmorphone 0.5 mg/0.5 mL iSecure Syringe IVPUSH PRN ×2 (13:17→14:05)
--- NOTE | 2017-06-01 13:19 | DRSVH ---
PROCEDURE: X-RAY ACUTE ABDOMINAL SERIES ([id number]) INDICATIONS: recent diverticulitis, abd pain TECHNIQUE: One view chest and two views of the abdomen were acquired. COMPARISON: 10/25/2016 FINDINGS: Surgical changes and devices: AICD. Chest: Lungs are clear. Heart size is normal. No pleural effusions. No pneumoperitoneum. Abdomen: Bowel gas pattern is normal. Moderate amount of stool in the rectal ampulla. No suspicious calcifications. Visualized solid organ contours appear normal. Bones: No suspicious bony lesions. IMPRESSION: 1. No evidence of bowel obstruction or pneumoperitoneum. Dictated by: Nacho Tate M.D. on 06/01/2017 at 13:16 Approved by: Nacho Tate M.D. on 06/01/2017 at 13:17
[2017-06-01 13:37] LABS: Magnesium 1.9 mg/dL (1.6-2.6)
[2017-06-01] MEDS ORDERED: 0.9% Sodium Chloride 1,000 ML IV ONE (13:45)
[2017-06-01] MEDS ORDERED: OXYC1TAB24 PO (14:03)
[2017-06-01 14:14] VITALS: BP 108/48; PULSE 66; RESP 16; O2SAT 97
== END 2017-06-01 14:15 | disposition home or self-care (01) ==
LOC: SED 11:43
DX: K57.32 Diverticulitis of large intestine without perforation or abscess without bleeding (principal); K21.9 Gastro-esophageal reflux disease without esophagitis; E78.5 Hyperlipidemia, unspecified; I50.22 Chronic systolic (congestive) heart failure; I25.10 Atherosclerotic heart disease of native coronary artery without angina pectoris; E11.43 Type 2 diabetes mellitus with diabetic autonomic (poly)neuropathy; K31.84 Gastroparesis; E11.51 Type 2 diabetes mellitus with diabetic peripheral angiopathy without gangrene; F41.9 Anxiety disorder, unspecified; F32.9 Major depressive disorder, single episode, unspecified; F17.200 Nicotine dependence, unspecified, uncomplicated; Z95.0 Presence of cardiac pacemaker; Z88.5 Allergy status to narcotic agent; Z79.82 Long term (current) use of aspirin; Z79.4 Long term (current) use of insulin; Z79.84 Long term (current) use of oral hypoglycemic drugs
CPT/HCPCS: 36415; 74022; 80053; 83690; 83735; 85025; 96361; 96374; 96375; 99284; J1170; J2405; J7030